=== PATIENT | male | born 1940 | race Caucasian/White ===

== ENCOUNTER 2018-12-14 12:01 | Inpatient (IN) | payer MEDICARE, MEDICAID ==
[~2018-12-14] VITALS: Ht 182.9 cm; Wt 50.3 kg
[~2018-12-14 12:01] MED LIST: NORCO 5-325 TA1 EACH ORAL
--- NOTE | 2018-12-14 12:05 | NUR ---
Jazmin phillips in EDM - 12/14/18 at 1310 by [email or web address] ED Nurse Note: pt came back from CT in stable condition.
[2018-12-14] MEDS ORDERED: FLOMAX0.4 MG ORAL (12:24)
[2018-12-14] MEDS ORDERED: COLACE100 MG ORAL (12:24)
[2018-12-14] MEDS ORDERED: PROSCAR5 MG ORAL (12:24)
[2018-12-14] MEDS ORDERED: MULTIVITAMINS1 EAC8 ORAL (12:24)
[2018-12-14] MEDS ORDERED: ACETAMINOPHEN325 M1 ORAL (12:24)
[2018-12-14] MEDS ORDERED: ASPIR 8181 MG ORAL (12:24)
[2018-12-14] MEDS ORDERED: GABAPENTIN300 MG ORAL (12:24)
[2018-12-14 12:25] VITALS: BP 116/70
--- NOTE | 2018-12-14 12:28 | NUR ---
ED Nurse Note: pt brought in to ER by ambulance from [facility] due to failure to thrive. per EMS, pt lost 8 lb in a month. pt aao x2-3 and ambulatory but weak. calm and cooperative. skin dry but no wound noted. pt is in gown and on cardiac catheterization technologist. no acute distress noted.
[2018-12-14] MEDS ORDERED: Isovue-300 100ml vial INJ PRN (12:45)
--- NOTE | 2018-12-14 12:45 | NUR ---
ED Nurse Note: x-ray at bedside.
[2018-12-14 12:56] LABS: BASOPHILS % (AUTO) 0.7 % (0.0-2.0); HEMOGLOBIN 15.6 G/DL (14.2-18.0); LYMPHOCYTES % (AUTO) 16.2 % (20.0-45.0); MEAN CORPUSCULAR VOLUME 87 FL (80-99); MONOCYTES % (AUTO) 11.3 % (1.0-10.0); NEUTROPHILS % (AUTO) 70.8 % (45.0-75.0); PLATELET COUNT 332 K/UL (150-450); RED BLOOD COUNT 5.54 M/UL (4.70-6.10); RED CELL DISTRIBUTION WIDTH 12.6 % (11.6-14.8); WHITE BLOOD COUNT 8.2 K/UL (4.8-10.8)
[2018-12-14 13:07] LABS: ANION GAP 11 mmol/L (5-15); BLOOD UREA NITROGEN 8 mg/dL (7-18); CALCIUM 9.9 MG/DL (8.5-10.1); CARBON DIOXIDE 26 MMOL/L (21-32); CHLORIDE 106 MMOL/L (98-107); CREATININE 0.7 MG/DL (0.55-1.30); POTASSIUM 4.7 MMOL/L (3.5-5.1); SODIUM 143 MMOL/L (136-145)
--- NOTE | 2018-12-14 13:18 | NUR ---
ED Nurse urine sent to lab.
[2018-12-14 13:21] LABS: ALANINE AMINOTRANSFERASE 12 U/L (12-78); ALBUMIN 3.4 G/DL (3.4-5.0); ALBUMIN/GLOBULIN RATIO 0.6 (1.0-2.7); ALKALINE PHOSPHATASE 43 U/L (46-116); ASPARTATE AMINO TRANSFERASE 15 U/L (15-37); BILIRUBIN,TOTAL 0.4 MG/DL (0.2-1.0); CKMB 0.7 NG/ML (0.0-3.6); CREATINE KINASE 35 U/L (26-308)
--- NOTE | 2018-12-14 13:25 | NUR ---
ED Nurse Note: Johnnie Rivera at bedside.
--- NOTE | 2018-12-14 13:27 | NUR ---
ED Nurse Note: pt went down for CT in stable condition.
[2018-12-14 13:30] LABS: APPEARANCE,URINE CLEAR; BILIRUBIN, URINE NEGATIVE (NEGATIVE); COLOR,URINE PALE YELLOW; GLUCOSE, URINE (UA) NEGATIVE (NEGATIVE); KETONES,URINE NEGATIVE (NEGATIVE); LEUKOCYTE ESTERASE ,URINE NEGATIVE (NEGATIVE); NITRITE,URINE NEGATIVE (NEGATIVE); PH,URINE 6 (4.5-8.0); PROTEIN,URINE NEGATIVE (NEGATIVE); UROBILINOGEN,URINE NORMAL MG/DL (0.0-1.0)
--- NOTE | 2018-12-14 13:50 | Emergency Room Report ---
History of Present Illness General Chief Complaint: General Complaint Source: Patient, EMS Present Illness HPI Patient presents from nursing facility with decreased oral intake patient has been having increased weight loss over the past 7 to 14 days patient has some increased nausea Denies any vomiting or diarrhea Denies any chest pain or shortness of breath patient's primary reports the patient does have history of carcinoma And this was concerning patient himself denies any dysuria denies any neck pain or photophobia denies any recent travel or trauma Allergies: Coded Allergies: No Known Allergies (Unverified , 06/22/15) Patient History Past Medical History: see triage record Reviewed Nursing Documentation: PMH: Agreed; PSxH: Agreed Nursing Documentation-PMH Hx Hypertension: Yes Hx COPD: Yes History Of Psychiatric Problem: Yes - DEPRESSION Hx Seizures: Yes Review of Systems All Other Systems: negative except mentioned in HPI Physical Exam Vital Signs Date Time Temp Pulse Resp B/P (MAP) Pulse Ox O2 Delivery O2 Flow Rate FiO2 12/14/18 12:10 97.9 62 16 116/70 (85) 96 Room Air Sp02 EP Interpretation: reviewed, normal General Appearance: no apparent distress Head: normocephalic, atraumatic Eyes: bilateral eye PERRL, bilateral eye EOMI ENT: hearing grossly normal, TMs + canals normal, uvula midline, dry mucus membranes Neck: full range of motion, supple, no meningismus, no bony tend Respiratory: lungs clear, normal breath sounds, no rhonchi, no respiratory distress, no retraction, no accessory muscle use Cardiovascular #1: normal peripheral pulses, regular rate, rhythm, no edema, no gallop, no JVD, no murmur Gastrointestinal: normal bowel sounds, non tender, soft, no mass, no organomegaly, non-distended, no guarding, no hernia, no pulsatile mass, no rebound Genitourinary: no CVA tenderness Musculoskeletal: normal inspection Neurologic: oriented x3, responsive, chief of production III-XII nml as tested, motor strength/ tone normal, sensory intact Psychiatric: mood/affect normal Skin: no rash Lymphatic: normal inspection, no adenopathy Medical Decision Making Diagnostic Impression: Primary Impression: Weakness Additional Impression: Dehydration ER Course Given the patient's history and presentation multiple differentials and consideration including but not limited to bowel obstruction, carcinoma, infectious pathology Patient's blood work is at baseline levels Patient was further IV hydrated He continues not to take Oral intake and will require further inpatient evaluation Labs Test 12/14/18 12:45 12/14/18 13:20 White Blood Count 8.2 K/UL (4.8-10.8) Red Blood Count 5.54 M/UL (4.70-6.10) Hemoglobin 15.6 G/DL (14.2-18.0) Hematocrit 48.0 % (42.0-52.0) Mean Corpuscular Volume 87 FL (80-99) Mean Corpuscular Hemoglobin 28.2 PG (27.0-31.0) Mean Corpuscular Hemoglobin Concent 32.6 G/DL (32.0-36.0) Red Cell Distribution Width 12.6 % (11.6-14.8) Platelet Count 332 K/UL (150-450) Mean Platelet Volume 5.1 FL (6.5-10.1) Neutrophils (%) (Auto) 70.8 % (45.0-75.0) Lymphocytes (%) (Auto) 16.2 % (20.0-45.0) Monocytes (%) (Auto) 11.3 % (1.0-10.0) Eosinophils (%) (Auto) 1.0 % (0.0-3.0) Basophils (%) (Auto) 0.7 % (0.0-2.0) Sodium Level 143 MMOL/L (136-145) Potassium Level 4.7 MMOL/L (3.5-5.1) Chloride Level 106 MMOL/L (98-107) Carbon Dioxide Level 26 MMOL/L (21-32) Anion Gap 11 mmol/L (5-15) Blood Urea Nitrogen 8 mg/dL (7-18) Creatinine 0.7 MG/DL (0.55-1.30) Estimat Glomerular Filtration Rate mL/min (>60) Glucose Level 96 MG/DL (74-106) Calcium Level 9.9 MG/DL (8.5-10.1) Total Bilirubin 0.4 MG/DL (0.2-1.0) Aspartate Amino Transf (AST/SGOT) 15 U/L (15-37) Alanine Aminotransferase (ALT/SGPT) 12 U/L (12-78) Alkaline Phosphatase 43 U/L (46-116) Total Creatine Kinase 35 U/L (26-308) Creatine Kinase MB 0.7 NG/ML (0.0-3.6) Creatine Kinase MB Relative Index 2.0 Troponin I 0.000 ng/mL (0.000-0.056) Total Protein 8.8 G/DL (6.4-8.2) Albumin 3.4 G/DL (3.4-5.0) Globulin 5.4 g/dL Albumin/Globulin Ratio 0.6 (1.0-2.7) Lipase 199 U/L (73-393) Urine Color Pale yellow Urine Appearance Clear Urine pH 6 (4.5-8.0) Urine Specific Rogers 1.015 (1.005-1.035) Urine Protein Negative (NEGATIVE) Urine Glucose (UA) Negative (NEGATIVE) Urine Ketones Negative (NEGATIVE) Urine Blood 3+ (NEGATIVE) Urine Nitrite Negative (NEGATIVE) Urine Bilirubin Negative (NEGATIVE) Urine Urobilinogen Normal MG/DL (0.0-1.0) Urine Leukocyte Esterase Negative (NEGATIVE) Rhythm Strip Diag. Results EP Interpretation: yes Rate: 77 Rhythm: NSR, no PVC's, no ectopy Chest X-Ray Diagnostic Results Chest X-Ray Diagnostic Results : Chest X-Ray Ordered: Yes # of Views/Limited/Complete: 1 View Indication: Chest Pain EP Interpretation: Yes Interpretation: no consolidation, no effusion, no pneumothorax, other - Several areas of atelectasis question scarring Impression: No acute disease - Scarring and atelectasis no obvious acute pathology Electronically Signed by: Fabian Green, DO CT/MRI/US Diagnostic Results CT/MRI/US Diagnostic Results : Impression CT abdomen pelvisImpression: Limited assessment of the GI tract, due to lack of enteric contrast administration Infiltration of the fat of the mesenteric root with prominent lymph nodes. This likely represents inflammation of the mesenteric root, appearance nonspecific as regards etiology. Mild rectal distention by feces, could indicate mild rectal fecal impaction Diffusely prominent gas and fluid-filled small bowel loops. Could indicate mild enteritis changes. Correlate with clinical findings Mild ectasia of the right ureter and equivocal slight enhancement of the ureteral wall, of doubtful significance but if real could indicate mild ureteritis changes. 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 Pulmonary opacities likely represent areas of scarring Postsurgical changes of both hips Prostatomegaly Degenerative spondylosis changes Last Vital Signs Date Time Temp Pulse Resp B/P (MAP) Pulse Ox O2 Delivery O2 Flow Rate FiO2 12/14/18 12:25 97.9 65 16 116/70 96 Room Air Status: improved Disposition: ADMITTED INPATIENT Condition: Serious Fabian Green DO Dec 14, 2018 13:50
--- NOTE | 2018-12-14 13:53 | NUR ---
ED Nurse Note: pt came back from CT in stable condition.
--- NOTE | 2018-12-14 14:27 | NUR ---
ED Nurse Note: report given to NAINA Estevez.
--- NOTE | 2018-12-14 14:34 | NUR ---
ED Nurse Note: pt left unit with 1 fibre technologist in stable condition.
--- NOTE | 2018-12-14 14:45 | NUR ---
NURSE NOTES: Patient came from ER via gurney. Report given by Mendez Hopper RN. Room air. AO x2, and confused. No c/o of pain/distress. Vital sign BP 133/48, [place] 70, SpO2 92, T 96.4. IV on R AC 20g, intact and patent, with saline lock. Skin intact. Ambulatory with steady gait. Belongings were accounted for. Orientation on unit given. Call light within reach. Will continue to monitor
--- NOTE | 2018-12-14 14:45 | Diagnostic Imaging Report ---
Clinical Indication: Abdominal pain and weight loss Technique: No oral contrast utilized, per emergency room physician request IV administration nonionic contrast. Venous phase spiral acquisition obtained through the abdomen and pelvis. Multiplanar reconstructions were generated. Total dose length product 468.65 mGycm. CTDIvol(s) 9.4 mGy. Dose reduction achieved using automated exposure control Comparison: none Findings: Lack of enteric contrast limits assessment of the GI tract. The appendix is not definitely identified. However, no findings to suggest acute appendicitis are evident. There is mild distention of the rectum by feces. No evidence of diverticulosis or diverticulitis. Small bowel loops are diffusely prominent, gas and fluid-filled, upper limits of normal in caliber. No definite transition point demonstrated. There is infiltration of the fat of the mesenteric root. Prominent lymph nodes are seen within the mesenteric root. The liver, gallbladder, bile ducts, pancreas, spleen, adrenals are unremarkable. A prominent node versus accessory splenule is seen adjacent to the greater curvature of the stomach. The right kidney demonstrates an interpolar region cyst. The left kidney demonstrates subcentimeter low-attenuation lesions which are too small to characterize, most likely benign simple cyst. The right ureter is slightly ectatic and demonstrates equivocal slight enhancement of the wall. The bladder is distended, otherwise unremarkable. The prostate is prominent. The lung bases demonstrate bilateral pleural calcifications, including on the diaphragmatic surface on the left. Confluent linear parenchymal opacities likely represent areas of scarring. The bones demonstrate degenerative spondylosis changes. There is bilateral hip hardware Impression: Limited assessment of the GI tract, due to lack of enteric contrast administration Infiltration of the fat of the mesenteric root with prominent lymph nodes. This likely represents inflammation of the mesenteric root, appearance nonspecific as regards etiology. Mild rectal distention by feces, could indicate mild rectal fecal impaction Diffusely prominent gas and fluid-filled small bowel loops. Could indicate mild enteritis changes. Correlate with clinical findings Mild ectasia of the right ureter and equivocal slight enhancement of the ureteral wall, of doubtful significance but if real could indicate mild ureteritis changes. 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 Pulmonary opacities likely represent areas of scarring Postsurgical changes of both hips Prostatomegaly Degenerative spondylosis changes The CT scanner at [facility] is accredited by the [employer] and the scans are performed using protocols designed to limit radiation exposure to as low as reasonably achievable to attain images of sufficient resolution adequate for diagnostic evaluation.
[2018-12-14] MEDS ORDERED: LORazepam Inj 2mg/ml 1ml IV PRN (15:00)
[2018-12-14] MEDS ORDERED: HYDROcodone/Acetamin 5/325 tab ORAL PRN ×2 (15:00)
[2018-12-14] MEDS ORDERED: Miralax 17gm pkt ORAL PRN (15:00)
[2018-12-14] MEDS ORDERED: Zolpidem 5mg tab ORAL PRN (15:00)
[2018-12-14] MEDS ORDERED: Morphine Sulfate 2mg/ml Inj(IV/IM USE ONLY) IVP PRN (15:00)
--- NOTE | 2018-12-14 15:23 | Diagnostic Imaging Report ---
Indication: Chest pain Technique: One view of the chest Comparison: none Findings: There is a wedge-shaped opacity in the right perihilar region. Opacities in the Left infrahilar region and left lung apex likely represent areas of scarring. There is some pleural thickening at the right lung apex. Heart size is normal. There is slight costophrenic angle blunting, demonstrated on CT scan performed at the same time to represent pleural scarring. Heart size is normal. Impression: Bilateral parenchymal opacities, likely representing areas of chronic scarring. Superimposed acute process not completely excludable. Mass lesion as etiology of the right perihilar opacity not completely excludable either. Right apical pleural scarring
[2018-12-14 16:00] VITALS: BP 115/73
--- NOTE | 2018-12-14 16:28 | NUR ---
NURSE NOTES: Patient walked out of the room and found on second floor. Security brought patient up to the floor, but patient was upset and yelling in the hallway saying that he does not want to be on the 4th fl. Pt was escorted back into room. Changed room near to the nursing station.
--- NOTE | 2018-12-14 16:30 | History and Physical Report ---
DATE OF ADMISSION: 12/14/2018 CONSULTANTS: 1. Eddie Patel M.D. 2. Johnathan Jarvis M.D. 3. Jacquie Moffett M.D. 4. Ortega Mercedes M.D. CHIEF COMPLAINT: Failure to thrive and weakness. BRIEF HISTORY: This is a 77-year-old male from [facility], presented with the above-mentioned diagnosis, possible questionable history of cancer. Currently, calm, slightly weak in bed, slightly confused. No complaint. PAST MEDICAL HISTORY: Current weakness and confusion. PAST SURGICAL HISTORY: Unknown. MEDICATION: We will obtain list shortly. ALLERGIES: Denies. SOCIAL HISTORY: Positive smoking. Positive alcohol. No intravenous drug abuse. FAMILY HISTORY: Noncontributory. REVIEW OF SYSTEMS: No chest pain. No shortness of breath. No nausea, vomiting, or diarrhea. PHYSICAL EXAMINATION: GENERAL: Calm in bed, oriented x2, in no acute distress. VITAL SIGNS: Temperature is 97 degrees, pulse 62, respirations 16, and blood pressure 116/70. CARDIOVASCULAR: No murmur. LUNGS: Distant and clear. ABDOMEN: Bowel sounds positive. Nontender. Nondistended. EXTREMITIES: No cyanosis or edema. NEUROLOGIC: The patient is slightly weak. He moves all extremities. LABORATORY DATA: Laboratories show CBC is normal. BMP shows a troponin of 0.00. BMP is normal. Urinalysis, 3+ blood. Otherwise normal. ASSESSMENT: 1. Failure to thrive. 2. Weakness. 3. Confusion. 4. Possible history of cancer. PLAN: 1. PT and dietary evaluation. 2. CBC and BMP in the morning. 3. Resume home medications. 4. We will continue to follow this patient. Johnnie Rivera D.O. DR: ELIAS JOB#: [id number] CC:
--- NOTE | 2018-12-14 19:09 | NUR ---
HAND-OFF: Report given to NAINA Monique.
[2018-12-14 20:00] VITALS: BP 101/56
--- NOTE | 2018-12-14 20:00 | NUR ---
NURSE NOTES: Patient received in bed, alert and awake. No acute distress at this time. Call light within reach. Instructed to call for assistance. Provided with ice water and encouraged for fluid intake, verbalized understanding. Will continue to monitor.
--- NOTE | 2018-12-14 23:15 | Consultation ---
DATE OF CONSULTATION: 12/14/2018 HISTORY OF PRESENT ILLNESS: This is a male patient who is 77 years old. He was admitted to the hospital due to dehydration, but this patient has been having some problems with failure to thrive and that is why there was a daily psychiatric consultation requested for this patient. I saw and assessed at bedside. He is still confused. He appears slightly anxious and slightly depressed, but he states he has not been eating, has not had much of an appetite, and slightly disorganized as well. The patient is very confused and disorganized. He has got mood lability. He has got no logical plan for his own self-care. PAST MEDICAL HISTORY: He has a history of head trauma, fracture of his knee, dehydration. PSYCHOTROPIC MEDICATIONS: On admission, he was on Neurontin previously. ALLERGIES: He has no known drug allergies. PSYCHIATRIC HISTORY: History of generalized anxiety disorder, rule out dementia with depressive disorder. FAMILY PSYCHIATRIC HISTORY: Denies. PAIN ASSESSMENT: 0/10. DEVELOPMENTAL PROBLEMS: No known developmental problems at this time. SOCIAL HISTORY: The patient is currently living in a fdc, [facility]. Financially supported by [employer] and Medicare. MENTAL STATUS EXAMINATION: This is a 77-year-old male. Appearance is disheveled. Attitude, irritable and agitated. Affect, guarded and restricted. Intellect poor. Mood, depressed and anxious. Motor activity, psychomotor agitation. Attention span is poor. Orientation x3. Speech is pressured. Thought process, disorganized and illogical. Insight and judgment is poor. DIAGNOSES: 1. Primary: Major depressive disorder, mild, recurrent, without psychotic features. 2. SECONDARY: None. 3. MEDICAL: Dehydration. 4. Psychosocial Stressors: Financial. Functional impairment is mild. PLAN: Start him on Remeron 15 mg at bedtime for depression and also failure to thrive. Provide him with 20 minutes of cognitive behavioral therapy to help him identify his automatic negative thoughts and help him convert those negative thoughts to more positive thoughts to reduce depression, anxiety, and mood lability. Chart reviewed. Discussed with staff. Seen and assessed at his room. Jacquie Moffett M.D. DR: Genaro JOB#: [id number] CC:
[2018-12-15] VITALS: BP 100/53
--- NOTE | 2018-12-15 05:50 | NUR ---
NURSE NOTES: Patient woke up confused and anxious asking why he was here. Explained to patient reason for hospitalization; patient verbalized he does not want to be here. Explained to patient plan of care and use talk therapy to calm patient down. Patient nodded and went back to bed. WIll monitor.
[2018-12-15 06:37] LABS: BASOPHILS % (AUTO) 0.9 % (0.0-2.0); EOSINOPHILS % (AUTO) 0.8 % (0.0-3.0); HEMATOCRIT 48.5 % (42.0-52.0); HEMOGLOBIN 15.7 G/DL (14.2-18.0); LYMPHOCYTES % (AUTO) 17.7 % (20.0-45.0); MEAN CORPUSCULAR VOLUME 88 FL (80-99); MONOCYTES % (AUTO) 9.8 % (1.0-10.0); NEUTROPHILS % (AUTO) 70.8 % (45.0-75.0); PLATELET COUNT 293 K/UL (150-450); RED BLOOD COUNT 5.54 M/UL (4.70-6.10); RED CELL DISTRIBUTION WIDTH 12.9 % (11.6-14.8); WHITE BLOOD COUNT 8.1 K/UL (4.8-10.8)
--- NOTE | 2018-12-15 07:18 | NUR ---
HAND-OFF: Report given to Bhavani CHEW.
[2018-12-15 07:25] LABS: ALANINE AMINOTRANSFERASE 17 U/L (12-78); ALBUMIN 3.6 G/DL (3.4-5.0); ALBUMIN/GLOBULIN RATIO 0.7 (1.0-2.7); ALKALINE PHOSPHATASE 41 U/L (46-116); ANION GAP 18 mmol/L (5-15); ASPARTATE AMINO TRANSFERASE 26 U/L (15-37); BILIRUBIN,TOTAL 0.3 MG/DL (0.2-1.0); BLOOD UREA NITROGEN 8 mg/dL (7-18); CALCIUM 10.1 MG/DL (8.5-10.1); CARBON DIOXIDE 19 MMOL/L (21-32); CHLORIDE 104 MMOL/L (98-107); CHOLESTEROL 140 MG/DL (< 200); CREATININE 0.9 MG/DL (0.55-1.30); HDL CHOLESTEROL 40 MG/DL (40-60); POTASSIUM 5.2 MMOL/L (3.5-5.1); SODIUM 141 MMOL/L (136-145); TRIGLYCERIDES 68 MG/DL (30-150)
[2018-12-15 08:00] VITALS: BP 120/57
--- NOTE | 2018-12-15 08:10 | NUR ---
NURSE NOTES: received report from NAINA cardenas. patient in bed. alert. confused at times.verbally responsive. no respiratory distress noted. no pain at this time IV RAC 20g. saline lock. intact. seizure precaution. side rail padded. bed in the lowest position and locked. call light within reach. will continue to provide plan of care.
[2018-12-15] MEDS: Tamsulosin 0.4mg cap ORAL SCH (08:31)
--- NOTE | 2018-12-15 09:21 | Consultation ---
History of Present Illness General Chief Complaint: General Complaint Present Illness Allergies: Coded Allergies: No Known Allergies (Unverified , 06/22/15) Medication History Scheduled Aspirin* (Aspir 81*), 81 MG ORAL DAILY, (Reported) Docusate Sodium* (Colace*), 100 MG ORAL DAILY, (Reported) Finasteride* (Proscar*), 5 MG ORAL DAILY, (Reported) Gabapentin* (Gabapentin*), 300 MG ORAL THREE TIMES A DAY, (Reported) Multivitamin With Minerals (Multivitamins With Minerals*), 1 TAB ORAL DAILY, ( Reported) Tamsulosin HCl (Flomax), 0.4 MG ORAL DAILY, (Reported) Scheduled PRN Acetaminophen* (Acetaminophen 325MG Tablet*), 650 MG ORAL Q4H PRN for Pain Scale (3-5), (Reported) Hydrocodone Bit/Acetaminophen 5-325* ([place] 5-325*), 1 TAB ORAL Q6H PRN for For Pain Patient History Healthcare decision maker Resuscitation status Full Code Advanced Directive on File Physical Exam Last 24 Hour Vital Signs Date Time Temp Pulse Resp B/P (MAP) Pulse Ox O2 Delivery O2 Flow Rate FiO2 12/15/18 08:00 98.0 70 18 120/57 (78) 98 12/15/18 00:00 98.2 66 18 100/53 (69) 97 12/14/18 21:00 Room Air 12/14/18 20:00 98.2 75 18 101/56 (71) 94 12/14/18 16:00 97.5 109 18 115/73 (87) 97 12/14/18 15:31 Room Air 12/14/18 14:32 97.7 68 16 127/78 94 Room Air 12/14/18 12:25 97.9 65 16 116/70 96 Room Air 12/14/18 12:25 62 16 Room Air 12/14/18 12:10 97.9 62 16 116/70 (85) 96 Room Air Intake and Output 12/14/18 12/15/18 18:59 06:59 Intake Total 500 ml 390 ml Balance 500 ml 390 ml Intake Oral 0 ml 390 ml IV Total 500 ml # Voids 2 Laboratory Tests Test 12/14/18 12:45 12/14/18 13:20 12/15/18 05:00 White Blood Count 8.2 K/UL (4.8-10.8) 8.1 K/UL (4.8-10.8) Red Blood Count 5.54 M/UL (4.70-6.10) 5.54 M/UL (4.70-6.10) Hemoglobin 15.6 G/DL (14.2-18.0) 15.7 G/DL (14.2-18.0) Hematocrit 48.0 % (42.0-52.0) 48.5 % (42.0-52.0) Mean Corpuscular Volume 87 FL (80-99) 88 FL (80-99) Mean Corpuscular Hemoglobin 28.2 PG (27.0-31.0) 28.3 PG (27.0-31.0) Mean Corpuscular Hemoglobin Concent 32.6 G/DL (32.0-36.0) 32.3 G/DL (32.0-36.0) Red Cell Distribution Width 12.6 % (11.6-14.8) 12.9 % (11.6-14.8) Platelet Count 332 K/UL (150-450) 293 K/UL (150-450) Mean Platelet Volume 5.1 FL (6.5-10.1) L 5.3 FL (6.5-10.1) L Neutrophils (%) (Auto) 70.8 % (45.0-75.0) 70.8 % (45.0-75.0) Lymphocytes (%) (Auto) 16.2 % (20.0-45.0) L 17.7 % (20.0-45.0) L Monocytes (%) (Auto) 11.3 % (1.0-10.0) H 9.8 % (1.0-10.0) Eosinophils (%) (Auto) 1.0 % (0.0-3.0) 0.8 % (0.0-3.0) Basophils (%) (Auto) 0.7 % (0.0-2.0) 0.9 % (0.0-2.0) Sodium Level 143 MMOL/L (136-145) 141 MMOL/L (136-145) Potassium Level 4.7 MMOL/L (3.5-5.1) 5.2 MMOL/L (3.5-5.1) H Chloride Level 106 MMOL/L (98-107) 104 MMOL/L (98-107) Carbon Dioxide Level 26 MMOL/L (21-32) 19 MMOL/L (21-32) L Anion Gap 11 mmol/L (5-15) 18 mmol/L (5-15) H Blood Urea Nitrogen 8 mg/dL (7-18) 8 mg/dL (7-18) Creatinine 0.7 MG/DL (0.55-1.30) 0.9 MG/DL (0.55-1.30) Estimat Glomerular Filtration Rate mL/min (>60) mL/min (>60) Glucose Level 96 MG/DL (74-106) 81 MG/DL (74-106) Calcium Level 9.9 MG/DL (8.5-10.1) 10.1 MG/DL (8.5-10.1) Total Bilirubin 0.4 MG/DL (0.2-1.0) 0.3 MG/DL (0.2-1.0) Aspartate Amino Transf (AST/SGOT) 15 U/L (15-37) 26 U/L (15-37) Alanine Aminotransferase (ALT/SGPT) 12 U/L (12-78) 17 U/L (12-78) Alkaline Phosphatase 43 U/L (46-116) L 41 U/L (46-116) L Total Creatine Kinase 35 U/L (26-308) Creatine Kinase MB 0.7 NG/ML (0.0-3.6) Creatine Kinase MB Relative Index 2.0 Troponin I 0.000 ng/mL (0.000-0.056) Total Protein 8.8 G/DL (6.4-8.2) H 8.9 G/DL (6.4-8.2) H Albumin 3.4 G/DL (3.4-5.0) 3.6 G/DL (3.4-5.0) Globulin 5.4 g/dL 5.3 g/dL Albumin/Globulin Ratio 0.6 (1.0-2.7) L 0.7 (1.0-2.7) L Lipase 199 U/L (73-393) Urine Color Pale yellow Urine Appearance Clear Urine pH 6 (4.5-8.0) Urine Specific [place] 1.015 (1.005-1.035) Urine Protein Negative (NEGATIVE) Urine Glucose (UA) Negative (NEGATIVE) Urine Ketones Negative (NEGATIVE) Urine Blood 3+ (NEGATIVE) H Urine Nitrite Negative (NEGATIVE) Urine Bilirubin Negative (NEGATIVE) Urine Urobilinogen Normal MG/DL (0.0-1.0) Urine Leukocyte Esterase Negative (NEGATIVE) Urine RBC 20-30 /HPF (0 - 0) H Urine WBC 0-2 /HPF (0 - 0) Urine Squamous Epithelial Cells Occasional /LPF Urine Bacteria Occasional /HPF (NONE) Triglycerides Level 68 MG/DL (30-150) Cholesterol Level 140 MG/DL (< 200) LDL Cholesterol 90 mg/dL (<100) HDL Cholesterol 40 MG/DL (40-60) Cholesterol/HDL Ratio 3.5 (3.3-4.4) Thyroid Stimulating Hormone (TSH) 1.745 uiU/mL (0.358-3.740) Height (Feet): 6 Height (Inches): 0.00 Weight (Pounds): 111 Medications Current Medications Medications (Trade) Dose Ordered Sig/Jose Route PRN Reason Start Time Stop Time Status Last Admin Dose Admin Acetaminophen (Tylenol) 650 mg Q4H PRN ORAL fever 12/14/18 15:00 01/13/19 14:59 Acetaminophen/ Hydrocodone Bitart ([place] 5/325) 1 tab Q6H PRN ORAL Mild Pain (Pain Scale 1-3) 12/14/18 15:00 12/21/18 14:59 Dextrose (Dextrose 50%) STAT PRN IV Hypoglycemia 12/14/18 15:00 01/13/19 14:59 Finasteride (Proscar) 5 mg DAILY ORAL 12/15/18 09:00 01/14/19 08:59 12/15/18 08:31 Gabapentin (Neurontin) 300 mg THREE TIMES A DAY ORAL 12/14/18 18:00 01/13/19 17:59 12/15/18 08:31 Iopamidol (Isovue-300 100ml) 100 ml NOW PRN INJ Radiology Procedure 12/14/18 12:45 Lorazepam (Ativan 2mg/ml 1ml) 0.5 mg Q4H PRN IV For Anxiety 12/14/18 15:00 12/21/18 14:59 Mirtazapine (Remeron) 15 mg BEDTIME ORAL 12/14/18 21:00 01/13/19 20:59 12/14/18 20:20 Morphine Sulfate (Morphine Sulfate) 1 mg Q4H PRN IVP Moderate Pain (Pain Scale 4-6) 12/14/18 15:00 12/21/18 14:59 Ondansetron HCl (Zofran) 4 mg Q6H PRN IVP Nausea & Vomiting 12/14/18 15:00 01/13/19 14:59 Polyethylene Glycol (Miralax) 17 gm HSPRN PRN ORAL Constipation 12/14/18 15:00 01/13/19 14:59 Tamsulosin HCl (Flomax) 0.4 mg DAILY ORAL 12/15/18 09:00 01/14/19 08:59 12/15/18 08:31 Zolpidem Tartrate (Ambien) 5 mg HSPRN PRN ORAL Insomnia 12/14/18 15:00 12/21/18 14:59 Assessment/Plan Assessment/Plan: Hematology Consultation Note DOS: 12/15/18 RFC: Rule out malignancy CHARLA MD: Argelia Rivera HPI 77y old male presents from nursing facility with decreased oral intake patient has been having increased weight loss over the past 7 to 14 days patient has some increased nausea Denies any vomiting or diarrhea Denies any chest pain or shortness of breath patient's primary reports the patient does have history of carcinoma And this was concerning patient himself denies any dysuria denies any neck pain or photophobia denies any recent travel or trauma Onco consulted for evaluation of malignancy, tumor markers ordered Coded Allergies: No Known Allergies (Unverified , 06/22/15) Patient History Past Medical History: see triage record Reviewed Nursing Documentation: PMH: Agreed; PSxH: Agreed Hx Hypertension: Yes Hx COPD: Yes History Of Psychiatric Problem: Yes - DEPRESSION Hx Seizures: Yes Review of Systems All Other Systems: negative except mentioned in HPI Physical Exam Vitals: noted General: no apparent distress HEENT: hearing grossly normal, TMs + canals normal, uvula midline, dry mucus membranes Respiratory: lungs clear, normal breath sounds, no rhonchi, no respiratory distress Cv: normal peripheral pulses, rrr Gastrointestinal: normal bowel sounds, nt, nd Msk: normal inspection Neuro: oriented x3, responsive, manager heavy duty III-XII nml as tested Psychiatric: mood/affect normal Lymphatic: normal inspection, no adenopathy Assessment and Recs: # Failure to thrive with decreased weight over the last several months --> have ordered for tumor markers --> ct imaging of the c/a/p reviewed and some prominent lymph nodes are noted in the mesenteric root --> hold off on bone marrow biopsy --> these lymph nodes may be nonspecific, consider rescan in 3 months --> daily weights --> calorie counts q3 day --> for periphilar mass have ordered ct chest with con # Hyperproteinemia --> have obtained an spep --> consider immunofix based on above # Monocytosis with normal wbc --> trend as needed --> imaging shows no infection # Hyperkalemia --> per renal management # Azotemia/dehydration --> ivf started Time of note does not correspond to time patient seen Greatly appreciate consultation. Eddie Patel MD Dec 15, 2018 09:21
[2018-12-15] MEDS ORDERED: Isovue-300 100ml vial INJ PRN (09:30)
--- NOTE | 2018-12-15 10:01 | NUR ---
NURSE NOTES: RN witnessed consent for chest CT scan w/contrast
--- NOTE | 2018-12-15 10:17 | General Progress Note ---
Assessment/Plan Problem List: (1) Cancer ICD Codes: C80.1 - Malignant (primary) neoplasm, unspecified SNOMED: 186089202 (2) Failure to thrive SNOMED: 08173404 (3) Confusion ICD Codes: R41.0 - Disorientation, unspecified SNOMED: 402953345 (4) Weak ICD Codes: R53.1 - Weakness SNOMED: 89143094 Status: stable, progressing Assessment/Plan: pt diet cbc bmp am Subjective Constitutional: Reports: weakness Allergies: Coded Allergies: No Known Allergies (Unverified , 06/22/15) All Systems: reviewed and negative except above Subjective calm in bed Objective Last 24 Hour Vital Signs Date Time Temp Pulse Resp B/P (MAP) Pulse Ox O2 Delivery O2 Flow Rate FiO2 12/15/18 08:00 98.0 70 18 120/57 (78) 98 12/15/18 00:00 98.2 66 18 100/53 (69) 97 12/14/18 21:00 Room Air 12/14/18 20:00 98.2 75 18 101/56 (71) 94 12/14/18 16:00 97.5 109 18 115/73 (87) 97 12/14/18 15:31 Room Air 12/14/18 14:32 97.7 68 16 127/78 94 Room Air 12/14/18 12:25 97.9 65 16 116/70 96 Room Air 12/14/18 12:25 62 16 Room Air 12/14/18 12:10 97.9 62 16 116/70 (85) 96 Room Air Intake and Output 12/14/18 12/15/18 19:00 07:00 Intake Total 500 ml 390 ml Balance 500 ml 390 ml Intake Oral 0 ml 390 ml IV Total 500 ml # Voids 2 Laboratory Tests 12/14/18 12:45: White Blood Count 8.2, Red Blood Count 5.54, Hemoglobin 15.6, Hematocrit 48.0, Mean Corpuscular Volume 87, Mean Corpuscular Hemoglobin 28.2, Mean Corpuscular Hemoglobin Concent 32.6, Red Cell Distribution Width 12.6, Platelet Count 332, Mean Platelet Volume 5.1L, Neutrophils (%) (Auto) 70.8, Lymphocytes (%) (Auto) 16.2L, Monocytes (%) (Auto) 11.3H, Eosinophils (%) (Auto) 1.0, Basophils (%) ( Auto) 0.7, Sodium Level 143, Potassium Level 4.7, Chloride Level 106, Carbon Dioxide Level 26, Anion Gap 11, Blood Urea Nitrogen 8, Creatinine 0.7, Estimat Glomerular Filtration Rate , Glucose Level 96, Calcium Level 9.9, Total Bilirubin 0.4, Aspartate Amino Transf (AST/SGOT) 15, Alanine Aminotransferase ( ALT/SGPT) 12, Alkaline Phosphatase 43L, Total Creatine Kinase 35, Creatine Kinase MB 0.7, Creatine Kinase MB Relative Index 2.0, Troponin I 0.000, Total Protein 8.8H, Albumin 3.4, Globulin 5.4, Albumin/Globulin Ratio 0.6L, Lipase 199 12/14/18 13:20: Urine Color Pale yellow, Urine Appearance Clear, Urine pH 6, Urine Specific [place] 1.015, Urine Protein Negative, Urine Glucose (UA) Negative, Urine Ketones Negative, Urine Blood 3+H, Urine Nitrite Negative, Urine Bilirubin Negative, Urine Urobilinogen Normal, Urine Leukocyte Esterase Negative, Urine RBC 20-30H, Urine WBC 0-2, Urine Squamous Epithelial Cells Occasional, Urine Bacteria Occasional 12/15/18 05:00: White Blood Count 8.1, Red Blood Count 5.54, Hemoglobin 15.7, Hematocrit 48.5, Mean Corpuscular Volume 88, Mean Corpuscular Hemoglobin 28.3, Mean Corpuscular Hemoglobin Concent 32.3, Red Cell Distribution Width 12.9, Platelet Count 293, Mean Platelet Volume 5.3L, Neutrophils (%) (Auto) 70.8, Lymphocytes (%) (Auto) 17.7L, Monocytes (%) (Auto) 9.8, Eosinophils (%) (Auto) 0.8, Basophils (%) (Auto ) 0.9, Sodium Level 141, Potassium Level 5.2H, Chloride Level 104, Carbon Dioxide Level 19L, Anion Gap 18H, Blood Urea Nitrogen 8, Creatinine 0.9, Estimat Glomerular Filtration Rate , Glucose Level 81, Calcium Level 10.1, Total Bilirubin 0.3, Aspartate Amino Transf (AST/SGOT) 26, Alanine Aminotransferase (ALT/SGPT) 17, Alkaline Phosphatase 41L, Total Protein 8.9H, Albumin 3.6, Globulin 5.3, Albumin/Globulin Ratio 0.7L, Triglycerides Level 68, Cholesterol Level 140, LDL Cholesterol 90, HDL Cholesterol 40, Cholesterol/HDL Ratio 3.5, Thyroid Stimulating Hormone (TSH) 1.745 Height (Feet): 6 Height (Inches): 0.00 Weight (Pounds): 111 General Appearance: lethargic EENT: normal ENT inspection Neck: normal alignment Cardiovascular: normal peripheral pulses, normal rate, regular rhythm Respiratory/Chest: chest wall non-tender, lungs clear, normal breath sounds Abdomen: normal bowel sounds, non tender, soft Extremities: normal inspection Edema: no edema noted Arm (L), no edema noted Arm (R), no edema noted Leg (L), no edema noted Leg (R), no edema noted Pedal (L), no edema noted Pedal (R), no edema noted Generalized Neurologic: motor weakness Skin: normal pigmentation, warm/dry Johnnie Rivera DO Dec 15, 2018 10:17
--- NOTE | 2018-12-15 10:30 | GI Initial Consult Note ---
History of Present Illness General Date patient seen: Dec 15, 2018 Time patient seen: 10:24 Reason for Hospitalization: General Complaint Referring physician: SHIRIN ZENG Reason for Consultation: Decreased appetite Present Illness HPI Patient presents from nursing facility with decreased oral intake patient has been having increased weight loss over the past 7 to 14 days patient has some increased nausea Denies any vomiting or diarrhea Denies any chest pain or shortness of breath patient's primary reports the patient does have history of carcinoma And this was concerning patient himself denies any dysuria denies any neck pain or photophobia denies any recent travel or trauma GI consulted for decreased appetite and weight loss. Patient seen, awake alert oriented x4 no apparent distress. No noted active signs of nausea vomiting. At this time the patient denies any abdominal pain or generalized pain. Patient stated he had a decrease in appetite over the past week due to depression. The patient denies any history of endoscopic or colonoscopy. Labs reviewed; no leukocytosis, no anemia, no transaminitis, potassium 5.2. Abdominal pelvis CT noted that the patient had mild fecal impaction. Patient is pending CT of the chest. Home Meds Active Scripts Hydrocodone Bit/Acetaminophen 5-325* ([place] 5-325*) 1 Each Tablet, 1 TAB ORAL Q6H PRN for For Pain, #10 TAB Prov:Bharathi Krause MD 06/23/15 Reported Medications Finasteride* (PROSCAR*) 5 Mg Tablet, 5 MG ORAL DAILY, #30 TAB 0 Refills 12/14/18 Multivitamin With Minerals (MULTIVITAMINS WITH MINERALS*) 1 Each Tablet, 1 TAB ORAL DAILY, TAB 12/14/18 Tamsulosin HCl (Flomax) 0.4 Mg Cap.er.24h, 0.4 MG ORAL DAILY, CAP 12/14/18 Gabapentin* (GABAPENTIN*) 300 Mg Capsule, 300 MG ORAL THREE TIMES A DAY, CAP 0 Refills 12/14/18 Docusate Sodium* (COLACE*) 100 Mg Capsule, 100 MG ORAL DAILY, CAP 12/14/18 Aspirin* (ASPIR 81*) 81 Mg Tablet.dr, 81 MG ORAL DAILY, TAB 12/14/18 Acetaminophen* (ACETAMINOPHEN 325MG TABLET*) 325 Mg Tablet, 650 MG ORAL Q4H PRN for Pain Scale (3-5), TAB 12/14/18 Med list reviewed/reconciled: Yes Allergies: Coded Allergies: No Known Allergies (Unverified , 06/22/15) Patient History History Provided By: Patient, Medical Record PMH Narrative Past Medical History: see triage record Reviewed Nursing Documentation: PMH: Agreed; PSxH: Agreed Nursing Documentation-PMH Hx Hypertension: Yes Hx COPD: Yes History Of Psychiatric Problem: Yes - DEPRESSION Hx Seizures: Yes Social History: Reports: smoking, alcohol use Review of Systems All Other Systems: negative except mentioned in HPI Physical Exam Vital Signs Date Time Temp Pulse Resp B/P (MAP) Pulse Ox O2 Delivery O2 Flow Rate FiO2 12/14/18 12:10 97.9 62 16 116/70 (85) 96 Room Air Sp02 EP Interpretation: reviewed, normal Labs Laboratory Tests Test 12/14/18 12:45 12/14/18 13:20 12/15/18 05:00 White Blood Count 8.2 K/UL (4.8-10.8) 8.1 K/UL (4.8-10.8) Red Blood Count 5.54 M/UL (4.70-6.10) 5.54 M/UL (4.70-6.10) Hemoglobin 15.6 G/DL (14.2-18.0) 15.7 G/DL (14.2-18.0) Hematocrit 48.0 % (42.0-52.0) 48.5 % (42.0-52.0) Mean Corpuscular Volume 87 FL (80-99) 88 FL (80-99) Mean Corpuscular Hemoglobin 28.2 PG (27.0-31.0) 28.3 PG (27.0-31.0) Mean Corpuscular Hemoglobin Concent 32.6 G/DL (32.0-36.0) 32.3 G/DL (32.0-36.0) Red Cell Distribution Width 12.6 % (11.6-14.8) 12.9 % (11.6-14.8) Platelet Count 332 K/UL (150-450) 293 K/UL (150-450) Mean Platelet Volume 5.1 FL (6.5-10.1) L 5.3 FL (6.5-10.1) L Neutrophils (%) (Auto) 70.8 % (45.0-75.0) 70.8 % (45.0-75.0) Lymphocytes (%) (Auto) 16.2 % (20.0-45.0) L 17.7 % (20.0-45.0) L Monocytes (%) (Auto) 11.3 % (1.0-10.0) H 9.8 % (1.0-10.0) Eosinophils (%) (Auto) 1.0 % (0.0-3.0) 0.8 % (0.0-3.0) Basophils (%) (Auto) 0.7 % (0.0-2.0) 0.9 % (0.0-2.0) Sodium Level 143 MMOL/L (136-145) 141 MMOL/L (136-145) Potassium Level 4.7 MMOL/L (3.5-5.1) 5.2 MMOL/L (3.5-5.1) H Chloride Level 106 MMOL/L (98-107) 104 MMOL/L (98-107) Carbon Dioxide Level 26 MMOL/L (21-32) 19 MMOL/L (21-32) L Anion Gap 11 mmol/L (5-15) 18 mmol/L (5-15) H Blood Urea Nitrogen 8 mg/dL (7-18) 8 mg/dL (7-18) Creatinine 0.7 MG/DL (0.55-1.30) 0.9 MG/DL (0.55-1.30) Estimat Glomerular Filtration Rate mL/min (>60) mL/min (>60) Glucose Level 96 MG/DL (74-106) 81 MG/DL (74-106) Calcium Level 9.9 MG/DL (8.5-10.1) 10.1 MG/DL (8.5-10.1) Total Bilirubin 0.4 MG/DL (0.2-1.0) 0.3 MG/DL (0.2-1.0) Aspartate Amino Transf (AST/SGOT) 15 U/L (15-37) 26 U/L (15-37) Alanine Aminotransferase (ALT/SGPT) 12 U/L (12-78) 17 U/L (12-78) Alkaline Phosphatase 43 U/L (46-116) L 41 U/L (46-116) L Total Creatine Kinase 35 U/L (26-308) Creatine Kinase MB 0.7 NG/ML (0.0-3.6) Creatine Kinase MB Relative Index 2.0 Troponin I 0.000 ng/mL (0.000-0.056) Total Protein 8.8 G/DL (6.4-8.2) H 8.9 G/DL (6.4-8.2) H Albumin 3.4 G/DL (3.4-5.0) 3.6 G/DL (3.4-5.0) Globulin 5.4 g/dL 5.3 g/dL Albumin/Globulin Ratio 0.6 (1.0-2.7) L 0.7 (1.0-2.7) L Lipase 199 U/L (73-393) Urine Color Pale yellow Urine Appearance Clear Urine pH 6 (4.5-8.0) Urine Specific [place] 1.015 (1.005-1.035) Urine Protein Negative (NEGATIVE) Urine Glucose (UA) Negative (NEGATIVE) Urine Ketones Negative (NEGATIVE) Urine Blood 3+ (NEGATIVE) H Urine Nitrite Negative (NEGATIVE) Urine Bilirubin Negative (NEGATIVE) Urine Urobilinogen Normal MG/DL (0.0-1.0) Urine Leukocyte Esterase Negative (NEGATIVE) Urine RBC 20-30 /HPF (0 - 0) H Urine WBC 0-2 /HPF (0 - 0) Urine Squamous Epithelial Cells Occasional /LPF Urine Bacteria Occasional /HPF (NONE) Triglycerides Level 68 MG/DL (30-150) Cholesterol Level 140 MG/DL (< 200) LDL Cholesterol 90 mg/dL (<100) HDL Cholesterol 40 MG/DL (40-60) Cholesterol/HDL Ratio 3.5 (3.3-4.4) Thyroid Stimulating Hormone (TSH) 1.745 uiU/mL (0.358-3.740) General Appearance: well appearing, no apparent distress, alert Head: normocephalic EENT: PERRL/EOMI, normal ENT inspection Neck: supple Respiratory: normal breath sounds, no respiratory distress Cardiovascular: normal rate Gastrointestinal: normal inspection, non tender, soft, normal bowel sounds, non -distended Rectal: deferred Genitourinary: deferred Musculoskeletal: normal inspection, back normal Neurologic: normal inspection, alert, oriented x3, responsive Psychiatric: normal inspection, judgement/insight normal, memory normal Skin: normal inspection, normal color, no rash, warm/dry, palpation normal, well hydrated Lymphatic: normal inspection, no adenopathy Current Medications Current Medications Medications (Trade) Dose Ordered Sig/Jose Route PRN Reason Start Time Stop Time Status Last Admin Dose Admin Acetaminophen (Tylenol) 650 mg Q4H PRN ORAL fever 12/14/18 15:00 01/13/19 14:59 Acetaminophen/ Hydrocodone Bitart ([place] 5/325) 1 tab Q6H PRN ORAL Mild Pain (Pain Scale 1-3) 12/14/18 15:00 12/21/18 14:59 Dextrose (Dextrose 50%) STAT PRN IV Hypoglycemia 12/14/18 15:00 01/13/19 14:59 Finasteride (Proscar) 5 mg DAILY ORAL 12/15/18 09:00 01/14/19 08:59 12/15/18 08:31 Gabapentin (Neurontin) 300 mg THREE TIMES A DAY ORAL 12/14/18 18:00 01/13/19 17:59 12/15/18 08:31 Iopamidol (Isovue-300 100ml) 100 ml NOW PRN INJ Radiology Procedure 12/14/18 12:45 Iopamidol (Isovue-300 100ml) 100 ml NOW PRN INJ Radiology Procedure 12/15/18 09:30 12/17/18 09:18 Lorazepam (Ativan 2mg/ml 1ml) 0.5 mg Q4H PRN IV For Anxiety 12/14/18 15:00 12/21/18 14:59 Mirtazapine (Remeron) 15 mg BEDTIME ORAL 12/14/18 21:00 01/13/19 20:59 12/14/18 20:20 Morphine Sulfate (Morphine Sulfate) 1 mg Q4H PRN IVP Moderate Pain (Pain Scale 4-6) 12/14/18 15:00 12/21/18 14:59 Ondansetron HCl (Zofran) 4 mg Q6H PRN IVP Nausea & Vomiting 12/14/18 15:00 01/13/19 14:59 Polyethylene Glycol (Miralax) 17 gm HSPRN PRN ORAL Constipation 12/14/18 15:00 01/13/19 14:59 Tamsulosin HCl (Flomax) 0.4 mg DAILY ORAL 12/15/18 09:00 01/14/19 08:59 12/15/18 08:31 Zolpidem Tartrate (Ambien) 5 mg HSPRN PRN ORAL Insomnia 12/14/18 15:00 12/21/18 14:59 GI: Plan Problems: (1) Failure to thrive (2) Weak (3) Confusion (4) Cancer (5) Dehydration Plan Patient may benefit from a colonoscopy to evaluate for colon CA, will consider pending work up Abdominal pelvis CT reviewed noted with mild fecal impaction Pending CT of the chest Symptomatic treatment at this time No signs of dysphasia or swallowing dysfunction. Advance diet as tolerated, consider Marinol to increase appetite stimulant. Zofran as needed Bowel regimen of Colace and MiraLAX Electrolyte correction IV and p.o. hydration Discussed with Dr. Jarvis. Thank you for this patient referral, we will follow. The patient was seen and examined at bedside and all new and available data was reviewed in the patients chart. I agree with the above findings, impression and plan. (Patient seen earlier today. Signature stamp does not reflect patient encounter time.). - MD Nim[facility]St[facility] Dec 15, 2018 10:30
[2018-12-15 12:00] VITALS: BP 110/55
[2018-12-15] MEDS: Docusate 100mg tablet ORAL SCH ×2 (12:01→17:13)
[2018-12-15] MEDS: Dronabinol 2.5mg Cap ORAL SCH ×2 (12:01→17:13)
--- NOTE | 2018-12-15 12:20 | NUR ---
NURSE NOTES: patient left unit for chest CT scan w/contrast via hospital bed with stable condition. Cr 0.9, IV on RAC 20g intact. consent singed. no respiratory distress noted on room air. no pain at this time.
--- NOTE | 2018-12-15 12:44 | NUR ---
NURSE NOTES: patient came back to unit from CT scan with stable condition.
--- NOTE | 2018-12-15 13:21 | NUR ---
P.T Note: P.T evaluation completed . Pt is baseline independent in all areas of ADL/functional mobilities and gait/locomotion. Current functional status does not warrant skilled P.T services. MARY Deleon . Thank you for this referral.
--- NOTE | 2018-12-15 13:27 | NUR ---
P.T Note: P.T evaluation completed . Pt is baseline independent in all areas of ADL/functional mobilities and gait/locomotion. Current functional status does not warrant skilled P.T services. MARY Barnett Thank you for this referral. Addendum: 12/15/18 at 1327 by MARCY EDEN PT Amended: Links added.
--- NOTE | 2018-12-15 13:45 | NUR ---
RD ASSESSMENT & RECOMMENDATIONS SEE CARE ACTIVITY FOR COMPLETE ASSESSMENT DAILY ESTIMATED NEEDS: Needs based on Underweight, FTT 50.5kg 30-35 kcals/kg 6143-0726 total kcals 1-1.5 g protein/kg 51-76 g total protein 25-30 mL/kg 7121-1879 total fluid mLs NUTRITION DIAGNOSIS: Increased kcal and pro needs r/t underweight status and wasting as evidenced by BMI underweight per guidelines, @78% IBW, pt w/ generalized moderate to severe muscle wasting. CURRENT DIET: Regular PO DIET RECOMMENDATIONS: Regular as tolerated ADDITIONAL RECOMMENDATIONS: 1) Ensure 1 bottle daily BID 2) Obtain a STANDING weight as able Pt adm w/ FTT and wt loss 3) Monitor PO intake 4) Trend K (5.2), need for dietary restriction
--- NOTE | 2018-12-15 13:51 | Consultation ---
History of Present Illness General Chief Complaint: General Complaint Referring physician: SHIRIN ZENG Reason for Consultation: inpatient management Present Illness HPI 77 year old male with hx of BPH admitted Allergies: Coded Allergies: No Known Allergies (Unverified , 06/22/15) Medication History Scheduled Aspirin* (Aspir 81*), 81 MG ORAL DAILY, (Reported) Docusate Sodium* (Colace*), 100 MG ORAL DAILY, (Reported) Finasteride* (Proscar*), 5 MG ORAL DAILY, (Reported) Gabapentin* (Gabapentin*), 300 MG ORAL THREE TIMES A DAY, (Reported) Multivitamin With Minerals (Multivitamins With Minerals*), 1 TAB ORAL DAILY, ( Reported) Tamsulosin HCl (Flomax), 0.4 MG ORAL DAILY, (Reported) Scheduled PRN Acetaminophen* (Acetaminophen 325MG Tablet*), 650 MG ORAL Q4H PRN for Pain Scale (3-5), (Reported) Hydrocodone Bit/Acetaminophen 5-325* ([place] 5-325*), 1 TAB ORAL Q6H PRN for For Pain Patient History Healthcare decision maker Resuscitation status Full Code Advanced Directive on File Physical Exam Last 24 Hour Vital Signs Date Time Temp Pulse Resp B/P (MAP) Pulse Ox O2 Delivery O2 Flow Rate FiO2 12/15/18 12:00 97.7 70 18 110/55 (73) 98 12/15/18 09:00 Room Air 12/15/18 08:00 98.0 70 18 120/57 (78) 98 12/15/18 00:00 98.2 66 18 100/53 (69) 97 12/14/18 21:00 Room Air 12/14/18 20:00 98.2 75 18 101/56 (71) 94 12/14/18 16:00 97.5 109 18 115/73 (87) 97 12/14/18 15:31 Room Air 12/14/18 14:32 97.7 68 16 127/78 94 Room Air Intake and Output 12/14/18 12/15/18 19:00 07:00 Intake Total 500 ml 390 ml Balance 500 ml 390 ml Intake Oral 0 ml 390 ml IV Total 500 ml # Voids 2 Laboratory Tests Test 12/15/18 05:00 12/15/18 10:50 White Blood Count 8.1 K/UL (4.8-10.8) Red Blood Count 5.54 M/UL (4.70-6.10) Hemoglobin 15.7 G/DL (14.2-18.0) Hematocrit 48.5 % (42.0-52.0) Mean Corpuscular Volume 88 FL (80-99) Mean Corpuscular Hemoglobin 28.3 PG (27.0-31.0) Mean Corpuscular Hemoglobin Concent 32.3 G/DL (32.0-36.0) Red Cell Distribution Width 12.9 % (11.6-14.8) Platelet Count 293 K/UL (150-450) Mean Platelet Volume 5.3 FL (6.5-10.1) L Neutrophils (%) (Auto) 70.8 % (45.0-75.0) Lymphocytes (%) (Auto) 17.7 % (20.0-45.0) L Monocytes (%) (Auto) 9.8 % (1.0-10.0) Eosinophils (%) (Auto) 0.8 % (0.0-3.0) Basophils (%) (Auto) 0.9 % (0.0-2.0) Sodium Level 141 MMOL/L (136-145) Potassium Level 5.2 MMOL/L (3.5-5.1) H Chloride Level 104 MMOL/L (98-107) Carbon Dioxide Level 19 MMOL/L (21-32) L Anion Gap 18 mmol/L (5-15) H Blood Urea Nitrogen 8 mg/dL (7-18) Creatinine 0.9 MG/DL (0.55-1.30) Estimat Glomerular Filtration Rate mL/min (>60) Glucose Level 81 MG/DL (74-106) Calcium Level 10.1 MG/DL (8.5-10.1) Total Bilirubin 0.3 MG/DL (0.2-1.0) Aspartate Amino Transf (AST/SGOT) 26 U/L (15-37) Alanine Aminotransferase (ALT/SGPT) 17 U/L (12-78) Alkaline Phosphatase 41 U/L (46-116) L Total Protein 8.9 G/DL (6.4-8.2) H Albumin 3.6 G/DL (3.4-5.0) Globulin 5.3 g/dL Albumin/Globulin Ratio 0.7 (1.0-2.7) L Pending Triglycerides Level 68 MG/DL (30-150) Cholesterol Level 140 MG/DL (< 200) LDL Cholesterol 90 mg/dL (<100) HDL Cholesterol 40 MG/DL (40-60) Cholesterol/HDL Ratio 3.5 (3.3-4.4) Thyroid Stimulating Hormone (TSH) 1.745 uiU/mL (0.358-3.740) Total Protein (PEP) Pending Albumin (PEP) Pending Globulin (PEP) Pending [id number] Pending Uvfva-[id number] Pending Beta Globulins Pending Beta Gamma Globulin Pending PEP Abnormal Protein Bands Pending Protein Electrophoresis Interpret Pending Carcinoembryonic Antigen Pending CA 19-9 Antigen Pending Prostate Specific Antigen 8.10 ng/mL (0.13-4.0) H Height (Feet): 6 Height (Inches): 0.00 Weight (Pounds): 111 Medications Current Medications Medications (Trade) Dose Ordered Sig/Jose Route PRN Reason Start Time Stop Time Status Last Admin Dose Admin Acetaminophen (Tylenol) 650 mg Q4H PRN ORAL fever 12/14/18 15:00 01/13/19 14:59 Acetaminophen/ Hydrocodone Bitart ([place] 5/325) 1 tab Q6H PRN ORAL Mild Pain (Pain Scale 1-3) 12/14/18 15:00 12/21/18 14:59 Dextrose (Dextrose 50%) STAT PRN IV Hypoglycemia 12/14/18 15:00 01/13/19 14:59 Docusate Sodium (Colace) 100 mg TID ORAL 12/15/18 13:00 01/14/19 12:59 12/15/18 12:01 Dronabinol (Marinol) 2.5 mg TID ORAL 12/15/18 13:00 01/14/19 12:59 12/15/18 12:01 Finasteride (Proscar) 5 mg DAILY ORAL 12/15/18 09:00 01/14/19 08:59 12/15/18 08:31 Gabapentin (Neurontin) 300 mg THREE TIMES A DAY ORAL 12/14/18 18:00 01/13/19 17:59 12/15/18 12:01 Iopamidol (Isovue-300 100ml) 100 ml NOW PRN INJ Radiology Procedure 12/14/18 12:45 12/16/18 12:44 Iopamidol (Isovue-300 100ml) 100 ml NOW PRN INJ Radiology Procedure 12/15/18 09:30 12/17/18 09:18 Lorazepam (Ativan 2mg/ml 1ml) 0.5 mg Q4H PRN IV For Anxiety 12/14/18 15:00 12/21/18 14:59 Mirtazapine (Remeron) 15 mg BEDTIME ORAL 12/14/18 21:00 01/13/19 20:59 12/14/18 20:20 Morphine Sulfate (Morphine Sulfate) 1 mg Q4H PRN IVP Moderate Pain (Pain Scale 4-6) 12/14/18 15:00 12/21/18 14:59 Ondansetron HCl (Zofran) 4 mg Q6H PRN IVP Nausea & Vomiting 12/14/18 15:00 01/13/19 14:59 Polyethylene Glycol (Miralax) 17 gm BEDTIME ORAL 12/15/18 21:00 01/14/19 20:59 Polyethylene Glycol (Miralax) 17 gm HSPRN PRN ORAL Constipation 12/14/18 15:00 01/13/19 14:59 Tamsulosin HCl (Flomax) 0.4 mg DAILY ORAL 12/15/18 09:00 01/14/19 08:59 12/15/18 08:31 Zolpidem Tartrate (Ambien) 5 mg HSPRN PRN ORAL Insomnia 12/14/18 15:00 12/21/18 14:59 Ortega Mercedes MD Dec 15, 2018 13:51
--- NOTE | 2018-12-15 13:58 | Consultation ---
History of Present Illness General Chief Complaint: General Complaint Referring physician: SHIRIN ZENG Reason for Consultation: inpatient management Present Illness HPI 77 year male with hx of BPH, retirement resident for many years brought in from SNF because of recent weight loss and poor oral intake. Initial evaluation including initial CXR showed that pt has emphysematous changes with some fibrosis. Allergies: Coded Allergies: No Known Allergies (Unverified , 06/22/15) Medication History Scheduled Aspirin* (Aspir 81*), 81 MG ORAL DAILY, (Reported) Docusate Sodium* (Colace*), 100 MG ORAL DAILY, (Reported) Finasteride* (Proscar*), 5 MG ORAL DAILY, (Reported) Gabapentin* (Gabapentin*), 300 MG ORAL THREE TIMES A DAY, (Reported) Multivitamin With Minerals (Multivitamins With Minerals*), 1 TAB ORAL DAILY, ( Reported) Tamsulosin HCl (Flomax), 0.4 MG ORAL DAILY, (Reported) Scheduled PRN Acetaminophen* (Acetaminophen 325MG Tablet*), 650 MG ORAL Q4H PRN for Pain Scale (3-5), (Reported) Hydrocodone Bit/Acetaminophen 5-325* ([place] 5-325*), 1 TAB ORAL Q6H PRN for For Pain Patient History Healthcare decision maker Resuscitation status Full Code Advanced Directive on File Past Medical/Surgical History Past Medical/Surgical History: (1) Emphysema lung (2) BPH (benign prostatic hyperplasia) Review of Systems All Other Systems: negative except mentioned in HPI Physical Exam General Appearance: WD/WN, no apparent distress Lines, tubes and drains: peripheral HEENT: normocephalic, anicteric Neck: non-tender, normal alignment Respiratory/Chest: chest wall non-tender, lungs clear, normal breath sounds Breasts: no masses Cardiovascular/Chest: normal peripheral pulses, normal rate Abdomen: normal bowel sounds, non tender Genitourinary/Rectal: normal genital exam Extremities: normal range of motion Skin Exam: normal pigmentation Last 24 Hour Vital Signs Date Time Temp Pulse Resp B/P (MAP) Pulse Ox O2 Delivery O2 Flow Rate FiO2 12/15/18 12:00 97.7 70 18 110/55 (73) 98 12/15/18 09:00 Room Air 12/15/18 08:00 98.0 70 18 120/57 (78) 98 12/15/18 00:00 98.2 66 18 100/53 (69) 97 12/14/18 21:00 Room Air 12/14/18 20:00 98.2 75 18 101/56 (71) 94 12/14/18 16:00 97.5 109 18 115/73 (87) 97 12/14/18 15:31 Room Air 12/14/18 14:32 97.7 68 16 127/78 94 Room Air Intake and Output 12/14/18 12/15/18 19:00 07:00 Intake Total 500 ml 390 ml Balance 500 ml 390 ml Intake Oral 0 ml 390 ml IV Total 500 ml # Voids 2 Laboratory Tests Test 12/15/18 05:00 12/15/18 10:50 White Blood Count 8.1 K/UL (4.8-10.8) Red Blood Count 5.54 M/UL (4.70-6.10) Hemoglobin 15.7 G/DL (14.2-18.0) Hematocrit 48.5 % (42.0-52.0) Mean Corpuscular Volume 88 FL (80-99) Mean Corpuscular Hemoglobin 28.3 PG (27.0-31.0) Mean Corpuscular Hemoglobin Concent 32.3 G/DL (32.0-36.0) Red Cell Distribution Width 12.9 % (11.6-14.8) Platelet Count 293 K/UL (150-450) Mean Platelet Volume 5.3 FL (6.5-10.1) L Neutrophils (%) (Auto) 70.8 % (45.0-75.0) Lymphocytes (%) (Auto) 17.7 % (20.0-45.0) L Monocytes (%) (Auto) 9.8 % (1.0-10.0) Eosinophils (%) (Auto) 0.8 % (0.0-3.0) Basophils (%) (Auto) 0.9 % (0.0-2.0) Sodium Level 141 MMOL/L (136-145) Potassium Level 5.2 MMOL/L (3.5-5.1) H Chloride Level 104 MMOL/L (98-107) Carbon Dioxide Level 19 MMOL/L (21-32) L Anion Gap 18 mmol/L (5-15) H Blood Urea Nitrogen 8 mg/dL (7-18) Creatinine 0.9 MG/DL (0.55-1.30) Estimat Glomerular Filtration Rate mL/min (>60) Glucose Level 81 MG/DL (74-106) Calcium Level 10.1 MG/DL (8.5-10.1) Total Bilirubin 0.3 MG/DL (0.2-1.0) Aspartate Amino Transf (AST/SGOT) 26 U/L (15-37) Alanine Aminotransferase (ALT/SGPT) 17 U/L (12-78) Alkaline Phosphatase 41 U/L (46-116) L Total Protein 8.9 G/DL (6.4-8.2) H Albumin 3.6 G/DL (3.4-5.0) Globulin 5.3 g/dL Albumin/Globulin Ratio 0.7 (1.0-2.7) L Pending Triglycerides Level 68 MG/DL (30-150) Cholesterol Level 140 MG/DL (< 200) LDL Cholesterol 90 mg/dL (<100) HDL Cholesterol 40 MG/DL (40-60) Cholesterol/HDL Ratio 3.5 (3.3-4.4) Thyroid Stimulating Hormone (TSH) 1.745 uiU/mL (0.358-3.740) Total Protein (PEP) Pending Albumin (PEP) Pending Globulin (PEP) Pending Mcvct-0-Xozacxvlc Pending [id number] Pending Beta Globulins Pending Beta Gamma Globulin Pending PEP Abnormal Protein Bands Pending Protein Electrophoresis Interpret Pending Carcinoembryonic Antigen Pending CA 19-9 Antigen Pending Prostate Specific Antigen 8.10 ng/mL (0.13-4.0) H Height (Feet): 6 Height (Inches): 0.00 Weight (Pounds): 111 Medications Current Medications Medications (Trade) Dose Ordered Sig/Jose Route PRN Reason Start Time Stop Time Status Last Admin Dose Admin Acetaminophen (Tylenol) 650 mg Q4H PRN ORAL fever 12/14/18 15:00 01/13/19 14:59 Acetaminophen/ Hydrocodone Bitart ([place] 5/325) 1 tab Q6H PRN ORAL Mild Pain (Pain Scale 1-3) 12/14/18 15:00 12/21/18 14:59 Dextrose (Dextrose 50%) STAT PRN IV Hypoglycemia 12/14/18 15:00 01/13/19 14:59 Docusate Sodium (Colace) 100 mg TID ORAL 12/15/18 13:00 01/14/19 12:59 12/15/18 12:01 Dronabinol (Marinol) 2.5 mg TID ORAL 12/15/18 13:00 01/14/19 12:59 12/15/18 12:01 Finasteride (Proscar) 5 mg DAILY ORAL 12/15/18 09:00 01/14/19 08:59 12/15/18 08:31 Gabapentin (Neurontin) 300 mg THREE TIMES A DAY ORAL 12/14/18 18:00 01/13/19 17:59 12/15/18 12:01 Iopamidol (Isovue-300 100ml) 100 ml NOW PRN INJ Radiology Procedure 12/14/18 12:45 12/16/18 12:44 Iopamidol (Isovue-300 100ml) 100 ml NOW PRN INJ Radiology Procedure 12/15/18 09:30 12/17/18 09:18 Lorazepam (Ativan 2mg/ml 1ml) 0.5 mg Q4H PRN IV For Anxiety 12/14/18 15:00 12/21/18 14:59 Mirtazapine (Remeron) 15 mg BEDTIME ORAL 12/14/18 21:00 01/13/19 20:59 12/14/18 20:20 Morphine Sulfate (Morphine Sulfate) 1 mg Q4H PRN IVP Moderate Pain (Pain Scale 4-6) 12/14/18 15:00 12/21/18 14:59 Ondansetron HCl (Zofran) 4 mg Q6H PRN IVP Nausea & Vomiting 12/14/18 15:00 01/13/19 14:59 Polyethylene Glycol (Miralax) 17 gm BEDTIME ORAL 12/15/18 21:00 01/14/19 20:59 Polyethylene Glycol (Miralax) 17 gm HSPRN PRN ORAL Constipation 12/14/18 15:00 01/13/19 14:59 Tamsulosin HCl (Flomax) 0.4 mg DAILY ORAL 12/15/18 09:00 01/14/19 08:59 12/15/18 08:31 Zolpidem Tartrate (Ambien) 5 mg HSPRN PRN ORAL Insomnia 12/14/18 15:00 12/21/18 14:59 Assessment/Plan Problem List: (1) Emphysema lung ICD Codes: J43.9 - Emphysema, unspecified SNOMED: 28474690 (2) Fibrotic lung diseases ICD Codes: J84.10 - Pulmonary fibrosis, unspecified SNOMED: 87961878 (3) BPH (benign prostatic hyperplasia) ICD Codes: N40.0 - Benign prostatic hyperplasia without lower urinary tract symptoms SNOMED: 057948481 Assessment/Plan: respiratory treatment f/u CT result GI evaluation symptomatic treatment dvt prophylaxis Ortega Mercedes MD Dec 15, 2018 13:58
--- NOTE | 2018-12-15 14:29 | Diagnostic Imaging Report ---
Clinical Indication: Abnormal chest sounds, shortness of breath Technique: IV administration nonionic contrast. Spiral acquisition obtained through the chest. Multiplanar reconstructions generated. Total dose length product 618.92 mGycm. CTDIvol(s) 14.61 mGy. Dose reduction achieved using automated exposure control Comparison: Chest radiograph 12/14/2018 Findings: There is a large area of confluent pleural and parenchymal opacity with a large cystic space at the right lung apex and extending along the periphery of the right lateral hemithorax. The resultant volume loss results in tenting of the right lateral mediastinum and pulmonary hilum, which accounts for the appearance of this area demonstrated on recent chest radiograph.. Less extensive confluent irregular opacity is seen at the left lung apex. Irregular opacities are also seen in the posterior left upper lobe, the medial right middle lobe, as well as scattered irregular opacities in the bilateral lower lobes. There are bilateral pleural calcifications. These are most extensive on the right. No definite consolidation. No congestion. No effusions The heart size is normal. No pericardial effusion. No mediastinal or hilar mass or adenopathy. The thyroid is unremarkable. No axillary or chest wall mass or adenopathy demonstrated. Included upper abdominal anatomy demonstrates a right renal cyst. Impression: Large area of confluent opacity involving the right upper lobe periphery, with a central area of cavitation. This most likely represents chronic scarring. The associated volume loss results in tenting of the right mediastinum and hilum, accounting for the wedge-shaped opacity in this area described on recent chest radiograph. No definite hilar mass demonstrated. Other areas of confluent, reticular and linear opacity, as described scattered throughout both lungs. These most likely represent areas of postinflammatory scarring. 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
[2018-12-15 16:00] VITALS: BP 110/55
--- NOTE | 2018-12-15 17:00 | Consultation ---
DATE OF CONSULTATION: 12/14/2018 HISTORY OF PRESENT ILLNESS: This is a 77-year-old male patient with dehydration, who continues to have some confusion and disorganized thought process and he has altered mental status with confusion, decline in cognition below his baseline. He also has high levels of anxiety as well as. That is another reason, why his attending has requested daily psychiatric consultation, but the reason why he came in is for dehydration. Fpc. He is confused, disorganized, mood labile. He has failure to thrive and he has altered mental status as well. He continues ____ today. MENTAL STATUS EXAMINATION: This is a 77-year-old male. Appearance is disheveled. Attitude, irritable and agitated. Affect, guarded and restricted. Intellect poor. Mood, depressed and anxious. Motor activity, psychomotor agitation. Attention span is poor. Orientation x2. Speech is low volume, slurred. Thought process, disorganized and illogical. Insight and judgment is poor. DIAGNOSIS: Major depressive disorder, mild, recurrent with psychotic features. PLAN: Plan for this patient is to treat this patient with a medication regimen of Remeron 15 mg at bedtime. A 20 minutes of cognitive behavioral therapy to help him identify his automatic negative thoughts and help him convert those negative thoughts to more positive thoughts to reduce depression, anxiety, and mood lability. Chart reviewed and discussed with staff. Seen and assessed at bedside. Continue treating this patient with the medication regimen of Remeron 15 mg at bedtime and Neurontin also on a dose of 300 mg 3 times a day and also continue on Ativan at a dose of 0.5 mg IV q.4 hours p.r.n. anxiety and agitation. Jacquie Moffett M.D. DR: HALLE JOB#: [id number] CC:
--- NOTE | 2018-12-15 19:35 | NUR ---
HAND-OFF: Report given to NAINA Deng.
[2018-12-15 20:00] VITALS: BP 102/55
--- NOTE | 2018-12-15 20:04 | NUR ---
NURSE NOTES: Pt is in bed, awake and verbal. no acute distress noted. Pt will be monitored for I&O. Bed locked low in position,side rails up and call light within reach. Pt will be monitored.
[2018-12-15] MEDS: Miralax 17gm pkt ORAL SCH (21:32)
[2018-12-16] VITALS: BP 107/55
--- NOTE | 2018-12-16 03:08 | NUR ---
NURSE NOTES: Pt si in bed, asleep. No acute distress noted. Pt has poor oral intake.
[2018-12-16 04:00] VITALS: BP 100/50
[2018-12-16 06:15] LABS: BASOPHILS % (AUTO) 0.9 % (0.0-2.0); EOSINOPHILS % (AUTO) 4.3 % (0.0-3.0); HEMATOCRIT 43.3 % (42.0-52.0); LYMPHOCYTES % (AUTO) 24.5 % (20.0-45.0); MEAN CORPUSCULAR VOLUME 88 FL (80-99); MONOCYTES % (AUTO) 12.9 % (1.0-10.0); NEUTROPHILS % (AUTO) 57.4 % (45.0-75.0); PLATELET COUNT 347 K/UL (150-450); RED BLOOD COUNT 4.94 M/UL (4.70-6.10); RED CELL DISTRIBUTION WIDTH 12.7 % (11.6-14.8); WHITE BLOOD COUNT 6.4 K/UL (4.8-10.8)
[2018-12-16 06:44] LABS: ANION GAP 9 mmol/L (5-15); BLOOD UREA NITROGEN 11 mg/dL (7-18); CALCIUM 9.8 MG/DL (8.5-10.1); CARBON DIOXIDE 28 MMOL/L (21-32); CHLORIDE 108 MMOL/L (98-107); POTASSIUM 5.3 MMOL/L (3.5-5.1); SODIUM 145 MMOL/L (136-145)
--- NOTE | 2018-12-16 07:20 | NUR ---
HAND-OFF: Report given to Bhavani Means RN.Informed to follow gertrude LEVINE regarding K+ 5.3.
--- NOTE | 2018-12-16 07:33 | NUR ---
NURSE NOTES: received report from NAINA Deng. patient in bed. alert. oriented, forgetful at times. verbally responsive. no respiratory distress noted. no pain at this time. IV on RAC 20 intact. saline lock. seizure precaution. side rails padded. bed in the lowest position. call light within reach. will continue to provide plan of care.
[2018-12-16 08:00] VITALS: BP 98/71
--- NOTE | 2018-12-16 08:00 | Progress Note ---
DATE: 12/16/2018 SUBJECTIVE: This is a 77-year-old male patient with dehydration. The patient continued to have some altered mental status, confusion, and disorganized thought process with high levels of anxiety and depression with failure to thrive. That is why, his attending physician has requested daily psychiatric consultation. MENTAL STATUS EXAMINATION: This is a 77-year-old male. Appearance is disheveled. Attitude, irritable and agitated. Affect, guarded and restricted. Intellect poor. Mood, depressed and anxious. Motor activity, psychomotor agitation. Attention span is poor. Orientation x2. Speech is low volume and slurred. Thought process is disorganized and logical. Insight and judgment is poor. DIAGNOSIS: Major depressive disorder, mild, recurrent with psychotic features, rule out dementia with psychosis. PLAN: Treat him with Remeron 15 mg at bedtime, Neurontin 300 mg 3 times a day, and Ativan 0.5 mg IV q.4 hours p.r.n. anxiety and agitation. A 20 minutes of cognitive behavioral therapy provided to help the patient identify his automatic negative thinking and convert those automatic negative thoughts to more positive thoughts to reduce depression, anxiety, and mood lability and help him have more adaptive behavioral pattern. Chart reviewed. Discussed with staff. Seen and assessed in his room. Jacquie Moffett M.D. DR: HALLE JOB#: [id number] CC:
[2018-12-16] MEDS: Dronabinol 2.5mg Cap ORAL SCH ×3 (08:11→17:07)
[2018-12-16] MEDS: Docusate 100mg tablet ORAL SCH ×3 (08:11→17:07)
[2018-12-16] MEDS: Tamsulosin 0.4mg cap ORAL SCH (08:11)
--- NOTE | 2018-12-16 09:31 | Hematology/Onc Progress Note ---
Assessment/Plan Assessment/Plan Assessment and Recs: # Failure to thrive with decreased weight over the last several months, imaging which shows lymph nodes may be nonspecific, consider rescan in 3 months --> have ordered for tumor markers (PSA 8.1) --> per uro --> ct imaging of the c/a/p reviewed and some prominent lymph nodes are noted in the mesenteric root, ct chest noted as well --> hold off on bone marrow biopsy --> daily weights --> calorie counts q3 day --> has been started on marinol --> ct chest: Large area of confluent opacity involving the right upper lobe periphery, with a central area of cavitation. This most likely represents chronic scarring. The associated volume loss results in tenting of the right mediastinum and hilum, accounting for the wedge-shaped opacity in this area described on recent chest radiograph. No definite hilar mass demonstrated. --> get repeat ct chest in 6months # Hyperproteinemia --> have obtained an spep elevated protein --> consider immunofix based on above # Monocytosis with normal wbc --> trend as needed --> imaging shows no infection # Hyperkalemia --> per renal management # Azotemia/dehydration --> ivf started # Dvt ppx with lovenox (12/16) Time of note does not correspond to time patient seen Greatly appreciate consultation. Subjective Constitutional: Denies: no symptoms, chills, fever, malaise, weakness, other HEENT: Denies: no symptoms, eye pain, blurred vision, tearing, double vision, ear pain, ear discharge, nose pain, nose congestion, throat pain, throat swelling, mouth pain, mouth swelling, other Cardiovascular: Denies: no symptoms, chest pain, edema, irregular heart rate, lightheadedness, palpitations, syncope, other Respiratory: Denies: no symptoms, cough, shortness of breath, SOB with excertion, SOB at rest, sputum, wheezing, other Gastrointestinal/Abdominal: Denies: no symptoms, abdomen distended, abdominal pain, black stools, tarry stools, blood in stool, constipated, diarrhea, difficulty swallowing, nausea, poor appetite, poor fluid intake, rectal bleeding , vomiting, other Neurologic/Psychiatric: Denies: no symptoms, anxiety, depressed, emotional problems, headache, numbness, paresthesia, pre-existing deficit, seizure, tingling, tremors, weakness, other Endocrine: Denies: no symptoms, excessive sweating, flushing, intolerance to cold, intolerance to heat, increased hunger, increased thirst, increased urine, unexplained weight gain, unexplained weight loss, other Allergies: Coded Allergies: No Known Allergies (Unverified , 06/22/15) Subjective 12/16: asleep, occasionally forgetful, labs reviewed, no bleeding noted Objective Objective Current Medications Medications (Trade) Dose Ordered Sig/Jose Route PRN Reason Start Time Stop Time Status Last Admin Dose Admin Acetaminophen (Tylenol) 650 mg Q4H PRN ORAL fever 12/14/18 15:00 01/13/19 14:59 Acetaminophen/ Hydrocodone Bitart ([place] 5/325) 1 tab Q6H PRN ORAL Mild Pain (Pain Scale 1-3) 12/14/18 15:00 12/21/18 14:59 Dextrose (Dextrose 50%) STAT PRN IV Hypoglycemia 12/14/18 15:00 01/13/19 14:59 Docusate Sodium (Colace) 100 mg TID ORAL 12/15/18 13:00 01/14/19 12:59 12/16/18 08:11 Dronabinol (Marinol) 2.5 mg TID ORAL 12/15/18 13:00 01/14/19 12:59 12/16/18 08:11 Finasteride (Proscar) 5 mg DAILY ORAL 12/15/18 09:00 01/14/19 08:59 12/16/18 08:11 Gabapentin (Neurontin) 300 mg THREE TIMES A DAY ORAL 12/14/18 18:00 01/13/19 17:59 12/16/18 08:11 Iopamidol (Isovue-300 100ml) 100 ml NOW PRN INJ Radiology Procedure 12/14/18 12:45 12/16/18 12:44 Iopamidol (Isovue-300 100ml) 100 ml NOW PRN INJ Radiology Procedure 12/15/18 09:30 12/17/18 09:18 Lorazepam (Ativan 2mg/ml 1ml) 0.5 mg Q4H PRN IV For Anxiety 12/14/18 15:00 12/21/18 14:59 Mirtazapine (Remeron) 15 mg BEDTIME ORAL 12/14/18 21:00 01/13/19 20:59 12/15/18 21:32 Morphine Sulfate (Morphine Sulfate) 1 mg Q4H PRN IVP Moderate Pain (Pain Scale 4-6) 12/14/18 15:00 12/21/18 14:59 Ondansetron HCl (Zofran) 4 mg Q6H PRN IVP Nausea & Vomiting 12/14/18 15:00 01/13/19 14:59 Polyethylene Glycol (Miralax) 17 gm BEDTIME ORAL 12/15/18 21:00 01/14/19 20:59 12/15/18 21:32 Polyethylene Glycol (Miralax) 17 gm HSPRN PRN ORAL Constipation 12/14/18 15:00 01/13/19 14:59 Tamsulosin HCl (Flomax) 0.4 mg DAILY ORAL 12/15/18 09:00 01/14/19 08:59 12/16/18 08:11 Zolpidem Tartrate (Ambien) 5 mg HSPRN PRN ORAL Insomnia 12/14/18 15:00 12/21/18 14:59 Last 24 Hour Vital Signs Date Time Temp Pulse Resp B/P (MAP) Pulse Ox O2 Delivery O2 Flow Rate FiO2 12/16/18 08:00 97.9 66 18 98/71 (80) 99 12/16/18 04:00 97.2 58 18 100/50 (67) 96 12/16/18 00:00 98.1 65 18 107/55 (72) 95 12/15/18 21:00 Room Air 12/15/18 20:00 98.2 65 18 102/55 (71) 97 12/15/18 16:00 98.0 66 18 110/55 (73) 95 12/15/18 12:00 97.7 70 18 110/55 (73) 98 12/15/18 09:00 Room Air 12/15/18 08:00 98.0 70 18 120/57 (78) 98 12/15/18 00:00 98.2 66 18 100/53 (69) 97 12/14/18 21:00 Room Air 12/14/18 20:00 98.2 75 18 101/56 (71) 94 12/14/18 16:00 97.5 109 18 115/73 (87) 97 12/14/18 15:31 Room Air 12/14/18 14:32 97.7 68 16 127/78 94 Room Air 12/14/18 12:25 97.9 65 16 116/70 96 Room Air 12/14/18 12:25 62 16 Room Air 12/14/18 12:10 97.9 62 16 116/70 (85) 96 Room Air Intake and Output 12/15/18 12/16/18 18:59 06:59 Intake Total 480 ml Balance 480 ml Intake Oral 480 ml # Voids 2 6 Labs Test 12/14/18 12:45 12/14/18 13:20 12/15/18 05:00 12/15/18 10:50 White Blood Count 8.2 K/UL (4.8-10.8) 8.1 K/UL (4.8-10.8) Red Blood Count 5.54 M/UL (4.70-6.10) 5.54 M/UL (4.70-6.10) Hemoglobin 15.6 G/DL (14.2-18.0) 15.7 G/DL (14.2-18.0) Hematocrit 48.0 % (42.0-52.0) 48.5 % (42.0-52.0) Mean Corpuscular Volume 87 FL (80-99) 88 FL (80-99) Mean Corpuscular Hemoglobin 28.2 PG (27.0-31.0) 28.3 PG (27.0-31.0) Mean Corpuscular Hemoglobin Concent 32.6 G/DL (32.0-36.0) 32.3 G/DL (32.0-36.0) Red Cell Distribution Width 12.6 % (11.6-14.8) 12.9 % (11.6-14.8) Platelet Count 332 K/UL (150-450) 293 K/UL (150-450) Mean Platelet Volume 5.1 FL (6.5-10.1) 5.3 FL (6.5-10.1) Neutrophils (%) (Auto) 70.8 % (45.0-75.0) 70.8 % (45.0-75.0) Lymphocytes (%) (Auto) 16.2 % (20.0-45.0) 17.7 % (20.0-45.0) Monocytes (%) (Auto) 11.3 % (1.0-10.0) 9.8 % (1.0-10.0) Eosinophils (%) (Auto) 1.0 % (0.0-3.0) 0.8 % (0.0-3.0) Basophils (%) (Auto) 0.7 % (0.0-2.0) 0.9 % (0.0-2.0) Sodium Level 143 MMOL/L (136-145) 141 MMOL/L (136-145) Potassium Level 4.7 MMOL/L (3.5-5.1) 5.2 MMOL/L (3.5-5.1) Chloride Level 106 MMOL/L (98-107) 104 MMOL/L (98-107) Carbon Dioxide Level 26 MMOL/L (21-32) 19 MMOL/L (21-32) Anion Gap 11 mmol/L (5-15) 18 mmol/L (5-15) Blood Urea Nitrogen 8 mg/dL (7-18) 8 mg/dL (7-18) Creatinine 0.7 MG/DL (0.55-1.30) 0.9 MG/DL (0.55-1.30) Estimat Glomerular Filtration Rate mL/min (>60) mL/min (>60) Glucose Level 96 MG/DL (74-106) 81 MG/DL (74-106) Calcium Level 9.9 MG/DL (8.5-10.1) 10.1 MG/DL (8.5-10.1) Total Bilirubin 0.4 MG/DL (0.2-1.0) 0.3 MG/DL (0.2-1.0) Aspartate Amino Transf (AST/SGOT) 15 U/L (15-37) 26 U/L (15-37) Alanine Aminotransferase (ALT/SGPT) 12 U/L (12-78) 17 U/L (12-78) Alkaline Phosphatase 43 U/L (46-116) 41 U/L (46-116) Total Creatine Kinase 35 U/L (26-308) Creatine Kinase MB 0.7 NG/ML (0.0-3.6) Creatine Kinase MB Relative Index 2.0 Troponin I 0.000 ng/mL (0.000-0.056) Total Protein 8.8 G/DL (6.4-8.2) 8.9 G/DL (6.4-8.2) Albumin 3.4 G/DL (3.4-5.0) 3.6 G/DL (3.4-5.0) Globulin 5.4 g/dL 5.3 g/dL Albumin/Globulin Ratio 0.6 (1.0-2.7) 0.7 (1.0-2.7) Lipase 199 U/L (73-393) Urine Color Pale yellow Urine Appearance Clear Urine pH 6 (4.5-8.0) Urine Specific [place] 1.015 (1.005-1.035) Urine Protein Negative (NEGATIVE) Urine Glucose (UA) Negative (NEGATIVE) Urine Ketones Negative (NEGATIVE) Urine Blood 3+ (NEGATIVE) Urine Nitrite Negative (NEGATIVE) Urine Bilirubin Negative (NEGATIVE) Urine Urobilinogen Normal MG/DL (0.0-1.0) Urine Leukocyte Esterase Negative (NEGATIVE) Urine RBC 20-30 /HPF (0 - 0) Urine WBC 0-2 /HPF (0 - 0) Urine Squamous Epithelial Cells Occasional /LPF Urine Bacteria Occasional /HPF (NONE) Triglycerides Level 68 MG/DL (30-150) Cholesterol Level 140 MG/DL (< 200) LDL Cholesterol 90 mg/dL (<100) HDL Cholesterol 40 MG/DL (40-60) Cholesterol/HDL Ratio 3.5 (3.3-4.4) Thyroid Stimulating Hormone (TSH) 1.745 uiU/mL (0.358-3.740) Prostate Specific Antigen 8.10 ng/mL (0.13-4.0) Test 12/16/18 05:42 White Blood Count 6.4 K/UL (4.8-10.8) Red Blood Count 4.94 M/UL (4.70-6.10) Hemoglobin 14.0 G/DL (14.2-18.0) Hematocrit 43.3 % (42.0-52.0) Mean Corpuscular Volume 88 FL (80-99) Mean Corpuscular Hemoglobin 28.3 PG (27.0-31.0) Mean Corpuscular Hemoglobin Concent 32.3 G/DL (32.0-36.0) Red Cell Distribution Width 12.7 % (11.6-14.8) Platelet Count 347 K/UL (150-450) Mean Platelet Volume 5.3 FL (6.5-10.1) Neutrophils (%) (Auto) 57.4 % (45.0-75.0) Lymphocytes (%) (Auto) 24.5 % (20.0-45.0) Monocytes (%) (Auto) 12.9 % (1.0-10.0) Eosinophils (%) (Auto) 4.3 % (0.0-3.0) Basophils (%) (Auto) 0.9 % (0.0-2.0) Sodium Level 145 MMOL/L (136-145) Potassium Level 5.3 MMOL/L (3.5-5.1) Chloride Level 108 MMOL/L (98-107) Carbon Dioxide Level 28 MMOL/L (21-32) Anion Gap 9 mmol/L (5-15) Blood Urea Nitrogen 11 mg/dL (7-18) Creatinine 1.0 MG/DL (0.55-1.30) Estimat Glomerular Filtration Rate mL/min (>60) Glucose Level 95 MG/DL (74-106) Calcium Level 9.8 MG/DL (8.5-10.1) Height (Feet): 6 Height (Inches): 0.00 Weight (Pounds): 111 Objective Physical Exam Vitals: noted General: no apparent distress HEENT: hearing grossly normal, TMs + Respiratory: lungs clear, normal breath sounds, no rhonchi, no respiratory distress Cv: normal peripheral pulses, rrr Gastrointestinal: normal bowel sounds, nt, nd Msk: normal inspection Neuro: oriented x3, responsive, electronic equipment repairer III-XII nml as tested Psychiatric: mood/affect normal Eddie Patel MD Dec 16, 2018 09:31
--- NOTE | 2018-12-16 09:44 | NUR ---
NURSE NOTES: patient potassium was 5.3 this morning. notified ENGAGEMENT ENGINEER brandon and received order kayaxalate 60g po once. order noted and carried out.
[2018-12-16] MEDS ORDERED: Sodium Polystyrene Sulfonate 15gm Powder ORAL ONE (10:30)
--- NOTE | 2018-12-16 11:02 | NUR ---
CASE MANAGEMENT: INITIAL REVIEW 77 YO M ANYA FROM [facility] CC: WEIGHT LOSS PMHx: COPD. HTN. SZ. DEPRESSION. SI:DEHYDRATION. T 9.9 HR 62 RR 16 B/P 116/70 SATS 96% ON RA ALP 43 IS; NS BOLUS X1 PATIENT ADMITTED TO MED/SURG 12/14/2018 @ 3081 DCP: PATIENT TO BE DISCHARGED TO SNF ONCE MEDICALLY CLEARED. Addendum: 12/16/18 at 1107 by Arlin Jarrett INTERQUAL MET
[2018-12-16] MEDS: Enoxaparin 40mg Inj SUBQ SCH (11:04)
[2018-12-16 12:00] VITALS: BP 96/51
--- NOTE | 2018-12-16 12:44 | Diagnostic Imaging Report ---
APPROVED REPORT CPT Code: 60950 Present Symptoms Comments: Pain BILATERAL: Imaging reveals a patent deep venous system bilaterally. There is no evidence of thrombus within the common femoral, superficial femoral, popliteal or tibial segments. The greater saphenous veins are within normal limits. Doppler indicates normal spontaneous flow within these segments.
--- NOTE | 2018-12-16 12:51 | GI Progress Note ---
Assessment/Plan Problems: (1) Constipation ICD Codes: K59.00 - Constipation, unspecified SNOMED: [id number] Status: stable Status Narrative Discussed with Dr. Jarvis. Assessment/Plan Patient may benefit from a colonoscopy to evaluate for colon CA, can be done as outpatient Abdominal pelvis CT reviewed noted with mild fecal impaction Symptomatic treatment at this time No signs of dysphasia or swallowing dysfunction. Advance diet as tolerated, consider Marinol to increase appetite stimulant. Zofran as needed Bowel regimen of Colace and MiraLAX Electrolyte correction IV and p.o. hydration The patient was seen and examined at bedside and all new and available data was reviewed in the patients chart. I agree with the above findings, impression and plan. (Patient seen earlier today. Signature stamp does not reflect patient encounter time.). - Johnathan Jarvis MD Subjective Gastrointestinal/Abdominal: Reports: no symptoms Objective Last 24 Hour Vital Signs Date Time Temp Pulse Resp B/P (MAP) Pulse Ox O2 Delivery O2 Flow Rate FiO2 12/16/18 09:00 Room Air 12/16/18 08:00 97.9 66 18 98/71 (80) 99 12/16/18 04:00 97.2 58 18 100/50 (67) 96 12/16/18 00:00 98.1 65 18 107/55 (72) 95 12/15/18 21:00 Room Air 12/15/18 20:00 98.2 65 18 102/55 (71) 97 12/15/18 16:00 98.0 66 18 110/55 (73) 95 Intake and Output 12/15/18 12/16/18 18:59 06:59 Intake Total 480 ml Balance 480 ml Intake Oral 480 ml # Voids 2 6 Laboratory Tests Test 12/16/18 05:42 White Blood Count 6.4 K/UL (4.8-10.8) Red Blood Count 4.94 M/UL (4.70-6.10) Hemoglobin 14.0 G/DL (14.2-18.0) L Hematocrit 43.3 % (42.0-52.0) Mean Corpuscular Volume 88 FL (80-99) Mean Corpuscular Hemoglobin 28.3 PG (27.0-31.0) Mean Corpuscular Hemoglobin Concent 32.3 G/DL (32.0-36.0) Red Cell Distribution Width 12.7 % (11.6-14.8) Platelet Count 347 K/UL (150-450) Mean Platelet Volume 5.3 FL (6.5-10.1) L Neutrophils (%) (Auto) 57.4 % (45.0-75.0) Lymphocytes (%) (Auto) 24.5 % (20.0-45.0) Monocytes (%) (Auto) 12.9 % (1.0-10.0) H Eosinophils (%) (Auto) 4.3 % (0.0-3.0) H Basophils (%) (Auto) 0.9 % (0.0-2.0) Sodium Level 145 MMOL/L (136-145) Potassium Level 5.3 MMOL/L (3.5-5.1) H Chloride Level 108 MMOL/L (98-107) H Carbon Dioxide Level 28 MMOL/L (21-32) Anion Gap 9 mmol/L (5-15) Blood Urea Nitrogen 11 mg/dL (7-18) Creatinine 1.0 MG/DL (0.55-1.30) Estimat Glomerular Filtration Rate mL/min (>60) Glucose Level 95 MG/DL (74-106) Calcium Level 9.8 MG/DL (8.5-10.1) Height (Feet): 6 Height (Inches): 0.00 Weight (Pounds): 111 General Appearance: WD/WN, no apparent distress, alert Cardiovascular: normal rate Respiratory/Chest: normal breath sounds, no respiratory distress Abdominal Exam: normal bowel sounds, non tender, soft Extremities: normal range of motion, non-tender Dwayne Bansal NP Dec 16, 2018 12:51
--- NOTE | 2018-12-16 13:38 | Pulmonology Progress Note ---
Assessment/Plan Problems: (1) Emphysema lung (2) Fibrotic lung diseases (3) BPH (benign prostatic hyperplasia) Assessment/Plan respiratory treatment titrate fio2 to sat of92% CT scan reviewed, all changes are chronic scaring pt doesn't know anything about history of cancer. symptomatic treatment Subjective ROS Limited/Unobtainable: No Constitutional: Reports: no symptoms HEENT: Repors: no symptoms Respiratory: Reports: no symptoms Allergies: Coded Allergies: No Known Allergies (Unverified , 06/22/15) Objective Last 24 Hour Vital Signs Date Time Temp Pulse Resp B/P (MAP) Pulse Ox O2 Delivery O2 Flow Rate FiO2 12/16/18 12:00 98.4 65 18 96/51 (66) 96 12/16/18 09:00 Room Air 12/16/18 08:00 97.9 66 18 98/71 (80) 99 12/16/18 04:00 97.2 58 18 100/50 (67) 96 12/16/18 00:00 98.1 65 18 107/55 (72) 95 12/15/18 21:00 Room Air 12/15/18 20:00 98.2 65 18 102/55 (71) 97 12/15/18 16:00 98.0 66 18 110/55 (73) 95 Intake and Output 12/15/18 12/16/18 19:00 07:00 Intake Total 480 ml Balance 480 ml Intake Oral 480 ml # Voids 2 6 General Appearance: WD/WN HEENT: normocephalic, anicteric Respiratory/Chest: chest wall non-tender, lungs clear Cardiovascular: normal peripheral pulses, normal rate Abdomen: normal bowel sounds, soft, non tender Genitourinary: normal external genitalia Extremities: no cyanosis Neurologic/Psychiatric: client evaluator II-XII grossly normal Lymphatic: no neck adenopathy Microbiology Date/Time Source Procedure Growth Status 12/14/18 14:00 Nasal Nares Left MRSA Culture - Final NO METHICILLIN RESISTANT STAPH AUREUS... Complete 12/14/18 14:00 Rectum VRE Culture - Final NO VANCOMYCIN RESISTANT ENTEROCOCCUS ... Complete Laboratory Tests 12/16/18 05:42: White Blood Count 6.4, Red Blood Count 4.94, Hemoglobin 14.0L, Hematocrit 43.3, Mean Corpuscular Volume 88, Mean Corpuscular Hemoglobin 28.3, Mean Corpuscular Hemoglobin Concent 32.3, Red Cell Distribution Width 12.7, Platelet Count 347, Mean Platelet Volume 5.3L, Neutrophils (%) (Auto) 57.4, Lymphocytes (%) (Auto) 24.5, Monocytes (%) (Auto) 12.9H, Eosinophils (%) (Auto) 4.3H, Basophils (%) ( Auto) 0.9, Sodium Level 145, Potassium Level 5.3H, Chloride Level 108H, Carbon Dioxide Level 28, Anion Gap 9, Blood Urea Nitrogen 11, Creatinine 1.0, Estimat Glomerular Filtration Rate , Glucose Level 95, Calcium Level 9.8 Current Medications Medications (Trade) Dose Ordered Sig/Jose Route PRN Reason Start Time Stop Time Status Last Admin Dose Admin Acetaminophen (Tylenol) 650 mg Q4H PRN ORAL fever 12/14/18 15:00 01/13/19 14:59 Acetaminophen/ Hydrocodone Bitart ([place] 5/325) 1 tab Q6H PRN ORAL Mild Pain (Pain Scale 1-3) 12/14/18 15:00 12/21/18 14:59 Dextrose (Dextrose 50%) STAT PRN IV Hypoglycemia 12/14/18 15:00 01/13/19 14:59 Docusate Sodium (Colace) 100 mg TID ORAL 12/15/18 13:00 01/14/19 12:59 12/16/18 12:29 Dronabinol (Marinol) 2.5 mg TID ORAL 12/15/18 13:00 01/14/19 12:59 12/16/18 12:29 Enoxaparin Sodium (Lovenox) 40 mg DAILY SUBQ 12/16/18 10:00 01/15/19 09:59 12/16/18 11:04 Finasteride (Proscar) 5 mg DAILY ORAL 12/15/18 09:00 01/14/19 08:59 12/16/18 08:11 Gabapentin (Neurontin) 300 mg THREE TIMES A DAY ORAL 12/14/18 18:00 01/13/19 17:59 12/16/18 12:29 Iopamidol (Isovue-300 100ml) 100 ml NOW PRN INJ Radiology Procedure 12/15/18 09:30 12/17/18 09:18 Lorazepam (Ativan 2mg/ml 1ml) 0.5 mg Q4H PRN IV For Anxiety 12/14/18 15:00 12/21/18 14:59 Mirtazapine (Remeron) 15 mg BEDTIME ORAL 12/14/18 21:00 01/13/19 20:59 12/15/18 21:32 Morphine Sulfate (Morphine Sulfate) 1 mg Q4H PRN IVP Moderate Pain (Pain Scale 4-6) 12/14/18 15:00 12/21/18 14:59 Ondansetron HCl (Zofran) 4 mg Q6H PRN IVP Nausea & Vomiting 12/14/18 15:00 01/13/19 14:59 Polyethylene Glycol (Miralax) 17 gm BEDTIME ORAL 12/15/18 21:00 01/14/19 20:59 12/15/18 21:32 Polyethylene Glycol (Miralax) 17 gm HSPRN PRN ORAL Constipation 12/14/18 15:00 01/13/19 14:59 Tamsulosin HCl (Flomax) 0.4 mg DAILY ORAL 12/15/18 09:00 01/14/19 08:59 12/16/18 08:11 Zolpidem Tartrate (Ambien) 5 mg HSPRN PRN ORAL Insomnia 12/14/18 15:00 12/21/18 14:59 Ortega Mercedes MD Dec 16, 2018 13:38
--- NOTE | 2018-12-16 14:08 | General Progress Note ---
Assessment/Plan Status: stable, progressing Assessment/Plan: pt diet dc if clear Subjective Constitutional: Reports: weakness Allergies: Coded Allergies: No Known Allergies (Unverified , 06/22/15) All Systems: reviewed and negative except above Subjective calm in bed Objective Last 24 Hour Vital Signs Date Time Temp Pulse Resp B/P (MAP) Pulse Ox O2 Delivery O2 Flow Rate FiO2 12/16/18 12:00 98.4 65 18 96/51 (66) 96 12/16/18 09:00 Room Air 12/16/18 08:00 97.9 66 18 98/71 (80) 99 12/16/18 04:00 97.2 58 18 100/50 (67) 96 12/16/18 00:00 98.1 65 18 107/55 (72) 95 12/15/18 21:00 Room Air 12/15/18 20:00 98.2 65 18 102/55 (71) 97 12/15/18 16:00 98.0 66 18 110/55 (73) 95 Intake and Output 12/15/18 12/16/18 19:00 07:00 Intake Total 480 ml Balance 480 ml Intake Oral 480 ml # Voids 2 6 Laboratory Tests 12/16/18 05:42: White Blood Count 6.4, Red Blood Count 4.94, Hemoglobin 14.0L, Hematocrit 43.3, Mean Corpuscular Volume 88, Mean Corpuscular Hemoglobin 28.3, Mean Corpuscular Hemoglobin Concent 32.3, Red Cell Distribution Width 12.7, Platelet Count 347, Mean Platelet Volume 5.3L, Neutrophils (%) (Auto) 57.4, Lymphocytes (%) (Auto) 24.5, Monocytes (%) (Auto) 12.9H, Eosinophils (%) (Auto) 4.3H, Basophils (%) ( Auto) 0.9, Sodium Level 145, Potassium Level 5.3H, Chloride Level 108H, Carbon Dioxide Level 28, Anion Gap 9, Blood Urea Nitrogen 11, Creatinine 1.0, Estimat Glomerular Filtration Rate , Glucose Level 95, Calcium Level 9.8 Height (Feet): 6 Height (Inches): 0.00 Weight (Pounds): 111 General Appearance: lethargic EENT: normal ENT inspection Neck: normal alignment Cardiovascular: normal peripheral pulses, normal rate, regular rhythm Respiratory/Chest: chest wall non-tender, normal breath sounds, no respiratory distress Abdomen: normal bowel sounds, non tender, soft Extremities: normal inspection Edema: no edema noted Arm (L), no edema noted Arm (R), no edema noted Leg (L), no edema noted Leg (R), no edema noted Pedal (L), no edema noted Pedal (R), no edema noted Generalized Neurologic: motor weakness Skin: normal pigmentation, warm/dry Johnnie Rivera DO Dec 16, 2018 14:08
--- NOTE | 2018-12-16 14:36 | NUR ---
NURSE NOTES: patient cleared by GI. ready for discharge. order noted and carried out.
[2018-12-16] MEDS ORDERED: DOCUSATE SODIU100 MG ORAL (14:55)
[2018-12-16] MEDS ORDERED: MARINOL2.5 MG ORAL (14:57)
--- NOTE | 2018-12-16 15:06 | NUR ---
DISCHARGE PLANNING: NOTE CLINICALS FAXED TO [facility] FOR REVIEW T: [phone] F: [phone]
--- NOTE | 2018-12-16 15:17 | Cardiology Report ---
APPROVED REPORT EKG Measurement Heart [id number] Normal sinus rhythm Normal ECG
--- NOTE | 2018-12-16 15:39 | NUR ---
DISCHARGE PLANNING: NOTE PT CANNOT BE DISCHARGED TO SNF TODAY. MANJEET JAVED AT [facility] IS GONE FOR THE DAY. SHE IS THE ONLY ONE WHO REVIEWS CLINICALS FOR RETURNING PATIENTS AND NEW PATIENTS. CM CONFIRMED PT IS ON BED HOLD. NO RN ISOBUTYLENE OPERATOR CHIEF AVAILABLE TO REVIEW CLINICALS AND PROVIDE A ROOM NUMBER. MANJEET WILL BE AVAILABLE IN AM.
[2018-12-16 16:00] VITALS: BP 90/56
--- NOTE | 2018-12-16 19:22 | NUR ---
HAND-OFF: Report given to NAINA Alba.
--- NOTE | 2018-12-16 19:47 | NUR ---
NURSE NOTES: Received patient in bed, alert/oriented x2, no acute distress noted, on room air, regular diet is tolerated well, no IV access, MD is notified. Bed is in low position, locked , alarm is on, call light is within reach, will continue to monitor for safety and comfort.
[2018-12-16 20:00] VITALS: BP 108/56
[2018-12-16] MEDS: Miralax 17gm pkt ORAL SCH (20:23)
[2018-12-17] VITALS: BP 98/61
--- NOTE | 2018-12-17 03:15 | Consultation ---
DATE OF CONSULTATION: 12/15/2018 NOTE: POOR AUDIO PSYCHOTHERAPY CONSULTATION PROGRESS NOTE CONSULTING PHYSICIAN: Rasheed Bernardo PsyD. TREATING ATTENDING PHYSICIAN: Johnnie Rivera D.O. HISTORY OF PRESENT ILLNESS: This patient is a male patient. He is 77 years old. He is from a [facility]. This patient was brought in to the hospital with dehydration. The patient has a history of failure to thrive and weakness as well. He has been confused. He has a history of depression is referred for psychotherapeutic services to assess this patient. The patient continues to be slightly disorganized states that he wants to go back to his nursing facility. He states that he has been feeling weak; however, he was sitting in a chair today stating he was ready to go. He denies suicidal or homicidal thoughts of ideation at this time. Denies any auditory or visual hallucinations. This patient is cooperative with the clinician and is able to communicate and participate and articulate his thoughts. The patient does have a past history of depression as well and constantly very focused on when he is going to be discharged from the hospital setting. He states that the senior care he wants to go back is . PAST MEDICAL HISTORY: Includes a history of weakness and confusion. ALLERGIES: The patient has no known drug allergies. SUBSTANCE ABUSE HISTORY: The patient has a history of drinking alcohol and smoking cigarettes. Denies a history of illicit substance use. PSYCHIATRIC HISTORY: The patient has a history of depression and confusion and has been taking psychotropic medications in the past. SOCIAL HISTORY: The patient is a 77-year-old male patient. He is from a [facility]. Financially sustained through [employer]. MENTAL STATUS EXAMINATION: He is alert and oriented to person and place. Mood is dysphoric. Affect is blunted. Thought process, disorganized. Thought content confused. The patient has poor attention and concentration. Poor insight, judgment, and impulse control. 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 PLAN: Today, I assessed this patient and provided the patient with: 1. Reality orientation with a focus on improving cognitive function of the patient who is very confused and disorganized. Oriented to person, place, time, and situation. 2. Provided the patient with supportive psychotherapy which is focused on identifying positive emotions of stress and encouraged him to communicate his feelings of helplessness, hopelessness, depression positive coping skills worked on positive thinking strategies including depressive symptoms. Plan is to maintain medication compliance positive coping skills . This clinician has reviewed the patient's chart and discussed the treatment with treatment team. Rasheed Bernardo PsyD. DR: CHER JOB#: [id number] CC:
[2018-12-17 04:00] VITALS: BP 99/51
--- NOTE | 2018-12-17 07:15 | NUR ---
HAND-OFF: Report given to Jose CHEW.
--- NOTE | 2018-12-17 07:46 | NUR ---
NURSE NOTES: PT AXOX3, CALM, EATING BREAKFAST. PT SITTING ON EDGE OF BED. DENIES PAIN OR SOB. IN NO APPARENT DISTRESS AT THIS TIME. PT VERBALIZES HE WILL USE CALL LIGHT TO ASK FOR ASSISTANCE. BED IN LOWEST POSITION WITH BEDSIDE RAILS X2 RAISED. CALL LIGHT WITHIN REACH. WILL CONTINUE TO MONITOR.
[2018-12-17 07:52] VITALS: BP 91/53
[2018-12-17] MEDS: Dronabinol 2.5mg Cap ORAL SCH ×2 (08:15→13:45)
[2018-12-17] MEDS: Docusate 100mg tablet ORAL SCH ×2 (08:15→13:45)
[2018-12-17] MEDS: Tamsulosin 0.4mg cap ORAL SCH (08:15)
[2018-12-17] MEDS: Enoxaparin 40mg Inj SUBQ SCH (08:19)
--- NOTE | 2018-12-17 09:35 | General Progress Note ---
Assessment/Plan Status: stable, progressing Assessment/Plan: pt diet dc if clear Subjective Constitutional: Reports: weakness Allergies: Coded Allergies: No Known Allergies (Unverified , 06/22/15) All Systems: reviewed and negative except above Subjective calm in bed Objective Last 24 Hour Vital Signs Date Time Temp Pulse Resp B/P (MAP) Pulse Ox O2 Delivery O2 Flow Rate FiO2 12/17/18 07:52 97.3 59 18 91/53 (66) 97 12/17/18 04:00 97.2 57 18 99/51 (67) 57 12/17/18 00:00 97.7 63 18 98/61 (73) 63 12/16/18 22:26 Room Air 12/16/18 20:00 98.7 67 18 108/56 (73) 67 12/16/18 16:00 97.2 66 18 90/56 (67) 96 12/16/18 12:00 98.4 65 18 96/51 (66) 96 Intake and Output 12/16/18 12/17/18 19:00 07:00 Intake Total 720 ml Balance 720 ml Intake Oral 720 ml # Voids 2 Height (Feet): 6 Height (Inches): 0.00 Weight (Pounds): 111 General Appearance: lethargic EENT: normal ENT inspection Neck: normal alignment Cardiovascular: normal peripheral pulses, normal rate, regular rhythm Respiratory/Chest: chest wall non-tender, lungs clear, normal breath sounds Abdomen: normal bowel sounds, non tender, soft Extremities: normal inspection Edema: no edema noted Arm (L), no edema noted Arm (R), no edema noted Leg (L), no edema noted Leg (R), no edema noted Pedal (L), no edema noted Pedal (R), no edema noted Generalized Neurologic: motor weakness Skin: normal pigmentation, warm/dry Johnnie Rivera DO Dec 17, 2018 09:35
--- NOTE | 2018-12-17 09:50 | Hematology/Onc Progress Note ---
Assessment/Plan Assessment/Plan Assessment and Recs: # Failure to thrive with decreased weight over the last several months, imaging which shows lymph nodes may be nonspecific, consider rescan in 3 months --> have ordered for tumor markers (PSA 8.1) --> per uro --> ct imaging of the c/a/p reviewed and some prominent lymph nodes are noted in the mesenteric root, ct chest noted as well --> hold off on bone marrow biopsy --> daily weights --> calorie counts q3 day --> has been started on marinol --> ct chest: Large area of confluent opacity involving the right upper lobe periphery, with a central area of cavitation. This most likely represents chronic scarring. The associated volume loss results in tenting of the right mediastinum and hilum, accounting for the wedge-shaped opacity in this area described on recent chest radiograph. No definite hilar mass demonstrated. --> get repeat ct chest in 6months # Hyperproteinemia --> have obtained an spep elevated protein --> consider immunofix based on above # Monocytosis with normal wbc --> trend as needed --> imaging shows no infection # Hyperkalemia --> per renal management # Azotemia/dehydration --> ivf started # Dvt ppx with lovenox (12/16) Time of note does not correspond to time patient seen Greatly appreciate consultation. Subjective Allergies: Coded Allergies: No Known Allergies (Unverified , 06/22/15) Subjective 12/16: asleep, occasionally forgetful, labs reviewed, no bleeding noted 12/17: vs stable, labs reviewed, no f/c, denies pain, no sob, no distress, dc planning Objective Objective Current Medications Medications (Trade) Dose Ordered Sig/Jose Route PRN Reason Start Time Stop Time Status Last Admin Dose Admin Acetaminophen (Tylenol) 650 mg Q4H PRN ORAL fever 12/14/18 15:00 01/13/19 14:59 Acetaminophen/ Hydrocodone Bitart ([place] 5/325) 1 tab Q6H PRN ORAL Mild Pain (Pain Scale 1-3) 12/14/18 15:00 12/21/18 14:59 Dextrose (Dextrose 50%) STAT PRN IV Hypoglycemia 12/14/18 15:00 01/13/19 14:59 Docusate Sodium (Colace) 100 mg TID ORAL 12/15/18 13:00 01/14/19 12:59 12/17/18 08:15 Dronabinol (Marinol) 2.5 mg TID ORAL 12/15/18 13:00 01/14/19 12:59 12/17/18 08:15 Enoxaparin Sodium (Lovenox) 40 mg DAILY SUBQ 12/16/18 10:00 01/15/19 09:59 12/17/18 08:19 Finasteride (Proscar) 5 mg DAILY ORAL 12/15/18 09:00 01/14/19 08:59 12/17/18 08:15 Gabapentin (Neurontin) 300 mg THREE TIMES A DAY ORAL 12/14/18 18:00 01/13/19 17:59 12/17/18 08:15 Lorazepam (Ativan 2mg/ml 1ml) 0.5 mg Q4H PRN IV For Anxiety 12/14/18 15:00 12/21/18 14:59 Mirtazapine (Remeron) 15 mg BEDTIME ORAL 12/14/18 21:00 01/13/19 20:59 12/16/18 20:23 Morphine Sulfate (Morphine Sulfate) 1 mg Q4H PRN IVP Moderate Pain (Pain Scale 4-6) 12/14/18 15:00 12/21/18 14:59 Ondansetron HCl (Zofran) 4 mg Q6H PRN IVP Nausea & Vomiting 12/14/18 15:00 01/13/19 14:59 Polyethylene Glycol (Miralax) 17 gm BEDTIME ORAL 12/15/18 21:00 01/14/19 20:59 12/16/18 20:23 Polyethylene Glycol (Miralax) 17 gm HSPRN PRN ORAL Constipation 12/14/18 15:00 01/13/19 14:59 Tamsulosin HCl (Flomax) 0.4 mg DAILY ORAL 12/15/18 09:00 01/14/19 08:59 12/17/18 08:15 Zolpidem Tartrate (Ambien) 5 mg HSPRN PRN ORAL Insomnia 12/14/18 15:00 12/21/18 14:59 Last 24 Hour Vital Signs Date Time Temp Pulse Resp B/P (MAP) Pulse Ox O2 Delivery O2 Flow Rate FiO2 12/17/18 07:52 97.3 59 18 91/53 (66) 97 12/17/18 04:00 97.2 57 18 99/51 (67) 57 12/17/18 00:00 97.7 63 18 98/61 (73) 63 12/16/18 22:26 Room Air 12/16/18 20:00 98.7 67 18 108/56 (73) 67 12/16/18 16:00 97.2 66 18 90/56 (67) 96 12/16/18 12:00 98.4 65 18 96/51 (66) 96 12/16/18 09:00 Room Air 12/16/18 08:00 97.9 66 18 98/71 (80) 99 12/16/18 04:00 97.2 58 18 100/50 (67) 96 12/16/18 00:00 98.1 65 18 107/55 (72) 95 12/15/18 21:00 Room Air 12/15/18 20:00 98.2 65 18 102/55 (71) 97 12/15/18 16:00 98.0 66 18 110/55 (73) 95 12/15/18 12:00 97.7 70 18 110/55 (73) 98 Intake and Output 12/16/18 12/17/18 18:59 06:59 Intake Total 720 ml Balance 720 ml Intake Oral 720 ml # Voids 2 Labs Test 12/14/18 12:45 12/14/18 13:20 12/15/18 05:00 12/15/18 10:50 White Blood Count 8.2 K/UL (4.8-10.8) 8.1 K/UL (4.8-10.8) Red Blood Count 5.54 M/UL (4.70-6.10) 5.54 M/UL (4.70-6.10) Hemoglobin 15.6 G/DL (14.2-18.0) 15.7 G/DL (14.2-18.0) Hematocrit 48.0 % (42.0-52.0) 48.5 % (42.0-52.0) Mean Corpuscular Volume 87 FL (80-99) 88 FL (80-99) Mean Corpuscular Hemoglobin 28.2 PG (27.0-31.0) 28.3 PG (27.0-31.0) Mean Corpuscular Hemoglobin Concent 32.6 G/DL (32.0-36.0) 32.3 G/DL (32.0-36.0) Red Cell Distribution Width 12.6 % (11.6-14.8) 12.9 % (11.6-14.8) Platelet Count 332 K/UL (150-450) 293 K/UL (150-450) Mean Platelet Volume 5.1 FL (6.5-10.1) 5.3 FL (6.5-10.1) Neutrophils (%) (Auto) 70.8 % (45.0-75.0) 70.8 % (45.0-75.0) Lymphocytes (%) (Auto) 16.2 % (20.0-45.0) 17.7 % (20.0-45.0) Monocytes (%) (Auto) 11.3 % (1.0-10.0) 9.8 % (1.0-10.0) Eosinophils (%) (Auto) 1.0 % (0.0-3.0) 0.8 % (0.0-3.0) Basophils (%) (Auto) 0.7 % (0.0-2.0) 0.9 % (0.0-2.0) Sodium Level 143 MMOL/L (136-145) 141 MMOL/L (136-145) Potassium Level 4.7 MMOL/L (3.5-5.1) 5.2 MMOL/L (3.5-5.1) Chloride Level 106 MMOL/L (98-107) 104 MMOL/L (98-107) Carbon Dioxide Level 26 MMOL/L (21-32) 19 MMOL/L (21-32) Anion Gap 11 mmol/L (5-15) 18 mmol/L (5-15) Blood Urea Nitrogen 8 mg/dL (7-18) 8 mg/dL (7-18) Creatinine 0.7 MG/DL (0.55-1.30) 0.9 MG/DL (0.55-1.30) Estimat Glomerular Filtration Rate mL/min (>60) mL/min (>60) Glucose Level 96 MG/DL (74-106) 81 MG/DL (74-106) Calcium Level 9.9 MG/DL (8.5-10.1) 10.1 MG/DL (8.5-10.1) Total Bilirubin 0.4 MG/DL (0.2-1.0) 0.3 MG/DL (0.2-1.0) Aspartate Amino Transf (AST/SGOT) 15 U/L (15-37) 26 U/L (15-37) Alanine Aminotransferase (ALT/SGPT) 12 U/L (12-78) 17 U/L (12-78) Alkaline Phosphatase 43 U/L (46-116) 41 U/L (46-116) Total Creatine Kinase 35 U/L (26-308) Creatine Kinase MB 0.7 NG/ML (0.0-3.6) Creatine Kinase MB Relative Index 2.0 Troponin I 0.000 ng/mL (0.000-0.056) Total Protein 8.8 G/DL (6.4-8.2) 8.9 G/DL (6.4-8.2) Albumin 3.4 G/DL (3.4-5.0) 3.6 G/DL (3.4-5.0) Globulin 5.4 g/dL 5.3 g/dL Albumin/Globulin Ratio 0.6 (1.0-2.7) 0.7 (1.0-2.7) 0.8 (0.7-1.7) Lipase 199 U/L (73-393) Urine Color Pale yellow Urine Appearance Clear Urine pH 6 (4.5-8.0) Urine Specific [place] 1.015 (1.005-1.035) Urine Protein Negative (NEGATIVE) Urine Glucose (UA) Negative (NEGATIVE) Urine Ketones Negative (NEGATIVE) Urine Blood 3+ (NEGATIVE) Urine Nitrite Negative (NEGATIVE) Urine Bilirubin Negative (NEGATIVE) Urine Urobilinogen Normal MG/DL (0.0-1.0) Urine Leukocyte Esterase Negative (NEGATIVE) Urine RBC 20-30 /HPF (0 - 0) Urine WBC 0-2 /HPF (0 - 0) Urine Squamous Epithelial Cells Occasional /LPF Urine Bacteria Occasional /HPF (NONE) Triglycerides Level 68 MG/DL (30-150) Cholesterol Level 140 MG/DL (< 200) LDL Cholesterol 90 mg/dL (<100) HDL Cholesterol 40 MG/DL (40-60) Cholesterol/HDL Ratio 3.5 (3.3-4.4) Thyroid Stimulating Hormone (TSH) 1.745 uiU/mL (0.358-3.740) Total Protein (PEP) 7.8 g/dL (6.0-8.5) Albumin (PEP) 3.5 g/dL (2.9-4.4) Globulin (PEP) 4.3 g/dL (2.2-3.9) Ltjal-9-Ztfherdra 0.4 g/dL (0.0-0.4) Ccmhm-3-Fzpxhcavb 1.2 g/dL (0.4-1.0) Beta Globulins 1.2 g/dL (0.7-1.3) Beta Gamma Globulin 1.5 g/dL (0.4-1.8) PEP Abnormal Protein Bands Not observed g/dL (Not Protein Electrophoresis Interpret Comment (.) Carcinoembryonic Antigen 1.7 ng/mL (0.0-4.7) CA 19-9 Antigen 8 U/mL (0-35) Prostate Specific Antigen 8.10 ng/mL (0.13-4.0) Test 12/16/18 05:42 White Blood Count 6.4 K/UL (4.8-10.8) Red Blood Count 4.94 M/UL (4.70-6.10) Hemoglobin 14.0 G/DL (14.2-18.0) Hematocrit 43.3 % (42.0-52.0) Mean Corpuscular Volume 88 FL (80-99) Mean Corpuscular Hemoglobin 28.3 PG (27.0-31.0) Mean Corpuscular Hemoglobin Concent 32.3 G/DL (32.0-36.0) Red Cell Distribution Width 12.7 % (11.6-14.8) Platelet Count 347 K/UL (150-450) Mean Platelet Volume 5.3 FL (6.5-10.1) Neutrophils (%) (Auto) 57.4 % (45.0-75.0) Lymphocytes (%) (Auto) 24.5 % (20.0-45.0) Monocytes (%) (Auto) 12.9 % (1.0-10.0) Eosinophils (%) (Auto) 4.3 % (0.0-3.0) Basophils (%) (Auto) 0.9 % (0.0-2.0) Sodium Level 145 MMOL/L (136-145) Potassium Level 5.3 MMOL/L (3.5-5.1) Chloride Level 108 MMOL/L (98-107) Carbon Dioxide Level 28 MMOL/L (21-32) Anion Gap 9 mmol/L (5-15) Blood Urea Nitrogen 11 mg/dL (7-18) Creatinine 1.0 MG/DL (0.55-1.30) Estimat Glomerular Filtration Rate mL/min (>60) Glucose Level 95 MG/DL (74-106) Calcium Level 9.8 MG/DL (8.5-10.1) Height (Feet): 6 Height (Inches): 0.00 Weight (Pounds): 111 Objective Physical Exam Vitals: noted General: no apparent distress HEENT: hearing grossly normal, TMs + Respiratory: lungs clear, normal breath sounds, no rhonchi, no respiratory distress Cv: normal peripheral pulses, rrr Gastrointestinal: normal bowel sounds, nt, nd Msk: normal inspection Neuro: oriented x3, responsive, product technician III-XII nml as tested Psychiatric: mood/affect normal Eddie Patel MD Dec 17, 2018 09:50
--- NOTE | 2018-12-17 11:10 | NUR ---
[employer] NOTES SPOKE WITH JASON FROM [facility], [facility] E[facility] 1230. NURSE MADE AWARE. PT WILL RETURN SKILLED.
--- NOTE | 2018-12-17 11:25 | NUR ---
DISCHARGE PLANNING DISCHARGE ORDER NOTED Patient has been accepted to; [facility] [address] [place] [id number] Bed:- Skilled [phone] Nurse to Nurse report [facility] ETA for transportation: 12:30pm
--- NOTE | 2018-12-17 11:40 | NUR ---
NURSE NOTES: RN GAVE REPORT TO JERI DOBBS AT [facility]. PT AGREES TO DISCHARGE.
[2018-12-17 12:00] VITALS: BP 91/47
--- NOTE | 2018-12-17 12:55 | NUR ---
NURSE NOTES: RN LEFT MESSAGE FOR ALEXIS GIFFORD REGARDING DISCHARGE TO [facility], AND LEFT CALL BACK NUMBER FOR ANY QUESTIONS. RN UNABLE TO REACH MARTIN GIFFORD. NUMBER IS NO LONGER IN SERVICE.
--- NOTE | 2018-12-17 13:39 | NUR ---
NURSE NOTES: RN SPOKE TO PRATIK AT [facility] AND ETA IS 45 MIN TO 1HR.
--- NOTE | 2018-12-17 13:51 | GI Progress Note ---
Assessment/Plan Problems: (1) Constipation ICD Codes: K59.00 - Constipation, unspecified SNOMED: 70624211 (2) Severe malnutrition ICD Codes: E43 - Unspecified severe protein-calorie malnutrition SNOMED: 03860994 (3) Dehydration ICD Codes: E86.0 - Dehydration SNOMED: 24415357 (4) Weakness ICD Codes: R53.1 - Weakness SNOMED: 92267636 Status: stable Status Narrative Discussed with Dr. Jarvis. Assessment/Plan Patient may benefit from a colonoscopy to evaluate for colon CA, can be done as outpatient Abdominal pelvis CT reviewed noted with mild fecal impaction Symptomatic treatment at this time No signs of dysphasia or swallowing dysfunction. Advance diet as tolerated, consider Marinol to increase appetite stimulant. Zofran as needed Bowel regimen of Colace and MiraLAX Electrolyte correction IV and p.o. hydration The patient was seen and examined at bedside and all new and available data was reviewed in the patients chart. I agree with the above findings, impression and plan. (Patient seen earlier today. Signature stamp does not reflect patient encounter time.). - Johnathan Jarvis MD Subjective Gastrointestinal/Abdominal: Reports: no symptoms Objective Last 24 Hour Vital Signs Date Time Temp Pulse Resp B/P (MAP) Pulse Ox O2 Delivery O2 Flow Rate FiO2 12/17/18 12:00 98.2 68 18 91/47 (62) 95 12/17/18 09:00 Room Air 12/17/18 07:52 97.3 59 18 91/53 (66) 97 12/17/18 04:00 97.2 57 18 99/51 (67) 57 12/17/18 00:00 97.7 63 18 98/61 (73) 63 12/16/18 22:26 Room Air 12/16/18 20:00 98.7 67 18 108/56 (73) 67 12/16/18 16:00 97.2 66 18 90/56 (67) 96 Intake and Output 12/16/18 12/17/18 18:59 06:59 Intake Total 720 ml Balance 720 ml Intake Oral 720 ml # Voids 2 Height (Feet): 6 Height (Inches): 0.00 Weight (Pounds): 111 General Appearance: WD/WN, no apparent distress, alert Cardiovascular: normal rate Respiratory/Chest: normal breath sounds, no respiratory distress Abdominal Exam: normal bowel sounds, non tender, soft Extremities: normal range of motion, non-tender Dwayne Bansal NP Dec 17, 2018 13:51
--- NOTE | 2018-12-17 14:04 | Pulmonology Progress Note ---
Assessment/Plan Problems: (1) Emphysema lung (2) Fibrotic lung diseases (3) BPH (benign prostatic hyperplasia) Assessment/Plan no new complains doing better respiratory treatment titrate fio2 to sat of92% CT scan reviewed, all changes are chronic scaring pt doesn't know anything about history of cancer. symptomatic treatment ok to dc Subjective ROS Limited/Unobtainable: No Constitutional: Reports: no symptoms HEENT: Repors: no symptoms Respiratory: Reports: no symptoms Allergies: Coded Allergies: No Known Allergies (Unverified , 06/22/15) Objective Last 24 Hour Vital Signs Date Time Temp Pulse Resp B/P (MAP) Pulse Ox O2 Delivery O2 Flow Rate FiO2 12/17/18 12:00 98.2 68 18 91/47 (62) 95 12/17/18 09:00 Room Air 12/17/18 07:52 97.3 59 18 91/53 (66) 97 12/17/18 04:00 97.2 57 18 99/51 (67) 57 12/17/18 00:00 97.7 63 18 98/61 (73) 63 12/16/18 22:26 Room Air 12/16/18 20:00 98.7 67 18 108/56 (73) 67 12/16/18 16:00 97.2 66 18 90/56 (67) 96 Intake and Output 12/16/18 12/17/18 18:59 06:59 Intake Total 720 ml Balance 720 ml Intake Oral 720 ml # Voids 2 General Appearance: WD/WN HEENT: atraumatic, PERRL Respiratory/Chest: chest wall non-tender, normal breath sounds Cardiovascular: normal peripheral pulses, regular rhythm Abdomen: normal bowel sounds, soft, non tender, no scars Current Medications Medications (Trade) Dose Ordered Sig/Jose Route PRN Reason Start Time Stop Time Status Last Admin Dose Admin Acetaminophen (Tylenol) 650 mg Q4H PRN ORAL fever 12/14/18 15:00 01/13/19 14:59 Acetaminophen/ Hydrocodone Bitart ([place] 5/325) 1 tab Q6H PRN ORAL Mild Pain (Pain Scale 1-3) 12/14/18 15:00 12/21/18 14:59 Dextrose (Dextrose 50%) STAT PRN IV Hypoglycemia 12/14/18 15:00 01/13/19 14:59 Docusate Sodium (Colace) 100 mg TID ORAL 12/15/18 13:00 01/14/19 12:59 12/17/18 13:45 Dronabinol (Marinol) 2.5 mg TID ORAL 12/15/18 13:00 01/14/19 12:59 12/17/18 13:45 Enoxaparin Sodium (Lovenox) 40 mg DAILY SUBQ 12/16/18 10:00 01/15/19 09:59 12/17/18 08:19 Finasteride (Proscar) 5 mg DAILY ORAL 12/15/18 09:00 01/14/19 08:59 12/17/18 08:15 Gabapentin (Neurontin) 300 mg THREE TIMES A DAY ORAL 12/14/18 18:00 01/13/19 17:59 12/17/18 13:45 Lorazepam (Ativan 2mg/ml 1ml) 0.5 mg Q4H PRN IV For Anxiety 12/14/18 15:00 12/21/18 14:59 Mirtazapine (Remeron) 15 mg BEDTIME ORAL 12/14/18 21:00 01/13/19 20:59 12/16/18 20:23 Morphine Sulfate (Morphine Sulfate) 1 mg Q4H PRN IVP Moderate Pain (Pain Scale 4-6) 12/14/18 15:00 12/21/18 14:59 Ondansetron HCl (Zofran) 4 mg Q6H PRN IVP Nausea & Vomiting 12/14/18 15:00 01/13/19 14:59 Polyethylene Glycol (Miralax) 17 gm BEDTIME ORAL 12/15/18 21:00 01/14/19 20:59 12/16/18 20:23 Polyethylene Glycol (Miralax) 17 gm HSPRN PRN ORAL Constipation 12/14/18 15:00 01/13/19 14:59 Tamsulosin HCl (Flomax) 0.4 mg DAILY ORAL 12/15/18 09:00 01/14/19 08:59 12/17/18 08:15 Zolpidem Tartrate (Ambien) 5 mg HSPRN PRN ORAL Insomnia 12/14/18 15:00 12/21/18 14:59 Ortega Mercedes MD Dec 17, 2018 14:04
--- NOTE | 2018-12-17 16:15 | Progress Note ---
DATE: 12/17/2018 SUBJECTIVE: This is a 77-year-old male patient with dehydration and failure to thrive, but he also has increased depression, anxiety, and altered mental status worsened by stress of his medical illness. That is why his attending has requested daily psychiatric consultation. MENTAL STATUS EXAMINATION: This is a 77-year-old male. Appearance is disheveled. Attitude, irritable and agitated. Affect, guarded and restricted. Intellect, poor. Mood, depressed and anxious. Motor activity, psychomotor agitation. Insight and and judgment is poor. DIAGNOSIS: Major depressive disorder, mild, recurrent with psychotic features, rule out dementia with psychosis. PLAN: Treat him with Remeron 15 mg nightly, Neurontin 300 mg three times a day, and Ativan 0.5 mg IV q.4 h. p.r.n. anxiety and agitation. A 20 minutes of reality-based supportive psychotherapy and 20 minutes of cognitive behavioral therapy to help him identify automatic negative thoughts and help convert those negative thoughts to more positive thoughts to reduce depression, anxiety, and mood lability. Chart reviewed and discussed with staff. Seen and assessed at bedside. Jacquie Moffett M.D. DR: NOLA JOB#: [id number] CC:
--- NOTE | 2018-12-19 10:44 | Discharge Summary ---
Discharge Summary Discharge Summary _ DATE OF ADMISSION: 12/14/2018 DATE OF DISCHARGE: 12/17/2018 DISCHARGED BY: Dr. Johnnie Rivera CONSULTANTS: Dr. Jacquie Bernardo Mechelle BRIEF HOSPITAL COURSE: Patient is a 77-year-old male, from [facility], presented to ED due to failure to thrive and weakness. Patient was reported to have decreased oral intake at the senior care. There was increased weight loss over the past 7 to 4 days. There was some increased nausea. Patient denied vomiting or diarrhea. He denied chest pain or shortness of breath. On evaluation at ED, vital signs were stable. Blood work did not show any leukocytosis. Hemoglobin and hematocrit were stable. Electrolytes were normal. Troponin negative. Urinalysis with +2 blood. Chest x-ray showed scarring and several areas of atelectasis. CT of the abdomen and pelvis showed prominent lymph nodes in the mesenteric root. Fecal impaction. Diffusely prominent gas and fluid-filled small bowel loops. Bilateral pleural calcification. He was admitted for dehydration. Oncologist was consulted. Tumor markers were ordered. CT imaging showed prominent lymph nodes in the mesentery. Lymph nodes may be nonspecific, recommend to rescan in 3 months. [employer] Counselor consulted. Chest x-ray with bilateral parenchymal opacities and scarring. CT scan of the chest showed a large confluent opacity involving the right upper lobe periphery, with central area of cavitation, most likely chronic scarring. Other areas of confluent, reticular and linear opacity, most likely areas of postinflammatory scarring. Psychiatric evaluation was done. Patient was slightly anxious and slightly depressed. He was diagnosed with major depressive disorder. He was started on Remeron 15 mg nightly for depression and failure to thrive. He was continued on Neurontin 300 mg 3 times daily. Ativan 0.5 mg IV every 4 hours as needed anxiety and agitation. GI was consulted. CT reviewed and patient showed fecal impaction. He was given bowel regimen with Colace and MiraLAX. Patient was recommended would benefit from a colonoscopy which can be done as outpatient. There were no signs of dysphasia or swallowing dysfunction. Diet was advanced as tolerated. CEA normal CA 199 normal. PSA was elevated to 8. Patient unaware of history of CA. Patient was discharged back to senior care. FINAL DIAGNOSES: Major depressive disorder, mild, recurrent, with psychotic features, rule out dementia and psychosis Fibrotic lung disease BPH Lung emphysema Constipation with no known fecal impaction Severe protein calorie malnutrition Dehydration Weakness Hyperproteinemia Monocytosis with normal WBC Hyperkalemia DISPOSITION: Patient was discharged to a SNF. DISCHARGE MEDICATIONS: Refer to Discharge Medication List. I have been assigned to complete a discharge summary on this account, I was not involved with the patient's management.--ANNE Darden Jacqueline Robles NP Dec 19, 2018 10:44
== END 2018-12-17 15:00 | DRG 640 ==
LOC: EDBD 12:01 → EMR 13:49 → 4E 13:51 → EDBEDREQ 14:18 → 4E 18:45
DX: E86.0 Dehydration (principal); E43 Unspecified severe protein-calorie malnutrition; Z68.1 Body mass index [BMI] 19.9 or less, adult; F33.3 Major depressive disorder, recurrent, severe with psychotic symptoms; R62.7 Adult failure to thrive; J84.10 Pulmonary fibrosis, unspecified; N40.0 Benign prostatic hyperplasia without lower urinary tract symptoms; J43.9 Emphysema, unspecified; K59.00 Constipation, unspecified; E88.09 Other disorders of plasma-protein metabolism, not elsewhere classified; D72.821 Monocytosis (symptomatic); E87.5 Hyperkalemia; C80.1 Malignant (primary) neoplasm, unspecified; R53.1 Weakness
CPT/HCPCS: 36415; 71045; 71260; 74177; 80048; 80053; 80061; 81003; 82378; 82550; 82553; 83690; 84153; 84165; 84443; 84484; 85025; 87081; 93005; 93970; 97803; 99285